=== PATIENT | female | born 1995 | race Caucasian/White ===

== ENCOUNTER → 2017-03-14 | Outpatient (CLI) | payer OTHER ==
[~2017-03-14] MED LIST: ABL10 PO; CIPR-255 PO; HYDR-5688 PO; MULT-506 PO; OXCA300T PO; SULF800T23 PO; TRAZ50TA35 PO
[2017-03-14 17:05] LABS: PREG INTERNAL NEGATIVE QC NEG CLEAR BACKGROUND; PREG INTERNAL POSITIVE QC POS CONTROL LINE
== END | disposition home or self-care (01) ==
LOC: C.LABBC 12:32
PROVIDERS: ATTEND Physician Assistant
DX: N91.2 Amenorrhea, unspecified (principal)

== ENCOUNTER → 2017-03-14 | Outpatient (CLI) | payer OTHER ==
[2017-03-17 09:25] LABS: CHLAMYDIA TRACH RNA*** NOT DETECTED (NOT DETECTED); GC (NEIS GONORRHOEAE)RNA** NOT DETECTED (NOT DETECTED)
== END | disposition home or self-care (01) ==
LOC: C.LABSPEC 16:00
PROVIDERS: ATTEND Physician Assistant
DX: Z01.419 Encounter for gynecological examination (general) (routine) without abnormal findings (principal)

== ENCOUNTER → 2017-03-14 | Outpatient (CLI) | payer OTHER | END | disposition home or self-care (01) | LOC: C.PAPS 16:29 | PROVIDERS: ATTEND Physician Assistant | DX: Z12.4 Encounter for screening for malignant neoplasm of cervix (principal) ==

== ENCOUNTER 2017-04-03 19:17 | Emergency (ER) | payer OTHER ==
[~2017-04-03] VITALS: Ht 165.1 cm; Wt 69.9 kg
[~2017-04-03 19:17] MED LIST changes: -ABL10 PO; -CIPR-255 PO; -HYDR-5688 PO; -SULF800T23 PO; -TRAZ50TA35 PO
[2017-04-03 19:22] VITALS: TEMP 36.9; Ht 165.1 cm; Wt 69.9 kg
[2017-04-03] MEDS ORDERED: SODIUM CHLORIDE 0.9% 1000ML 1,000 ML IV STA (19:41)
[2017-04-03] MEDS ORDERED: HYDROmorphone INJ 1 MG/ML SYR IV STA (19:49)
[2017-04-03] MEDS ORDERED: KETOROLAC TROMETHAMINE 30 MG/ML VIAL IV STA (19:49)
[2017-04-03] MEDS ORDERED: METOCLOPRAMIDE HCL INJ 5 MG/ML 2 ML VIAL IV STA (19:49)
[2017-04-03] MEDS ORDERED: TRAZ50TA35 PO (19:53)
[2017-04-03] MEDS ORDERED: ABL10 PO (19:53)
[2017-04-03] MEDS ORDERED: OPTIRAY 320 IV PRN (20:15)
[2017-04-03 20:21] LABS: ISTAT CREATININE 0.8 mg/dl (0.6-1.3); ISTAT HEMOGLOBIN 14.3 g/dl (12.0-16.0); ISTAT IONIZED CALCIUM 1.15 mmol/l (1.12-1.32)
[2017-04-03 20:23] LABS: URINE APPEARANCE CLOUDY (CLEAR); URINE BILIRUBIN NEG (NEG); URINE COLOR YELLOW; URINE EPITHELIAL CELL AUTO >30 /lpf (0-5); URINE NITRITE NEG (NEG); URINE SPECIFIC GRAVITY 1.024 (1.000-1.030); UROBILINOGEN NEG (NEG)
[2017-04-03 20:24] LABS: MANUAL MICROSCOPIC REQUIRED? NO; REVIEW REQ? YES
[2017-04-03 20:29] LABS: BASO % 0.2 %; BASO ABS # 0.02 K/uL (0-0.2); COMPLETE YES; EOS % 2.1 %; HEMATOCRIT 40.9 % (37-47); IG% 0.2 %; LYMPH % 30.4 %; MEAN CORPUSCULAR HEMOGLOBIN 30.5 pg (25-34); MEAN CORPUSCULAR HGB CONC 32.8 g/dl (32-36); MONO % 10.7 %; NEUT % 56.4 %; PLATELET COUNT 336 K/uL (130-400)
--- NOTE | 2017-04-03 20:50 | EMERGENCY ROOM VISIT NOTE ---
History Report prepared by Adam: Jennyfer Ortiz Under the Supervision of: Dr. Judson Olmedo M.D. First contact with patient: 19:36 Chief Complaint: ABDOMINAL PAIN Stated Complaint: PAIN IN RT UPPER SIDE, FEVER History of Present Illness The patient is a 22 year old female who presents to the Emergency Room with complaints of right upper quadrant abdominal pain starting 3 days ago. She reports pain radiation to the back. She describes it as a sharp pain. She took Ibuprofen without relief. She has nausea with eating. She had a fever last night. She denies vomiting, or any other complaints. She denies any chance of . Her last normal menstrual period ended 3 days ago. She denies any history of cholecystectomy. Source of History: patient Onset: 3 days ago Position: abdomen (RUQ) Quality: sharp Modifying Factors (Relieving): ibuprofen (without relief) Associated Symptoms: + fevers, + nausea, No vomiting Review of Systems See HPI for pertinent positives & negatives. A total of 10 systems reviewed and were otherwise negative. Past Medical & Surgical Medical Problems: (1) Abdominal pain, acute (2) Acute bronchitis (3) Acute bronchitis (4) adhd (5) Altered mental state (6) Altered mental state (7) Asthma (8) Benign hypertension (9) Bipolar disorder (10) Confusion (11) Contusion of finger (12) Contusion of knee, left (13) Contusion of knee, left (14) Cough (15) Dental caries (16) Dental infection (17) Gastroenteritis (18) Headache (19) Headache (20) Hip pain, right (21) history of concussion 2 years ago (22) Lower abdominal pain of unknown etiology (23) Migraine (24) Ovarian cyst (25) Ovarian cyst (26) Pelvic pain (27) Severe headache (28) Sinusitis (29) Sinusitis (30) stomach poblems (31) Tendonitis of foot (32) Tooth pain with chewing (33) Urinary tract infection (34) UTI (urinary tract infection) (35) UTI (urinary tract infection) (36) Vaginal bleeding (37) Viral syndrome (38) Vomiting Surgical Problems: (1) Appendectomy (2) pin in hip Family History Cancer Diabetes mellitus FH: heart disease FHx: cancer Gallbladder disease Heart disease Hypertension Seizures Social History Smoking Status: Current Every Day Smoker Alcohol Use: none Drug Use: none Marital Status: single Housing Status: lives with family Occupation Status: student Current/Historical Medications Scheduled Aripiprazole (Abilify), 10 MG PO DAILY Ciprofloxacin Hcl (Cipro), 1 TAB PO BID Multivitamin (Multivitamin), 1 TAB PO DAILY Trazodone Hcl (Trazodone), 50 MG PO HS Scheduled PRN Hydrocodone/Acetaminophen 5MG/325MG (Mosby 5MG/325MG), 2 TABLETS PO Q6 PRN for Pain Allergies Coded Allergies: Sulfamethoxazole w/Trimethoprim (Verified Allergy, Intermediate, Generalized Rash, 04/03/17) Itchy, Painful Lamotrigine (Verified Allergy, Unknown, Rash and peeling skin., 04/03/17) Reported by PT. Sulfa Antibiotics (Unverified Allergy, Unknown, MINI STROKE, SEIZURE, 04/03) Quetiapine (Unverified Adverse Reaction, Mild, 0, 04/03/17) movement dso Physical Exam Vital Signs Date Time Temp Pulse Resp B/P (MAP) Pulse Ox O2 Delivery O2 Flow Rate FiO2 04/03/17 22:05 80 18 127/79 99 04/03/17 21:34 87 04/03/17 21:16 71 18 122/85 100 Room Air 04/03/17 20:12 93 18 121/76 98 Room Air 04/03/17 19:22 36.9 97 18 120/80 100 Room Air Physical Exam GENERAL: Patient is a healthy-appearing well-nourished HEAD: Normocephalic atraumatic EYES: Ocular movements intact pupils equal and react to light OROPHARYNX mucous membranes are moist no exudates present no erythema or edema present NECK: Supple no nuchal rigidity CHEST: Good equal expansion LUNGS: Clear and equal to auscultation CARDIAC: Normal S1 and S2 ABDOMEN: Soft, tenderness in right upper quadrant, no guarding BACK: No CVA tenderness EXTREMITIES: No pain upon palpation normal muscle strength in all groups no clubbing cyanosis or edema NEURO: Patient is following commands and answering questions appropriately. Alert and oriented x3 Cranial Nerves 2-12 grossly intact Medical Decision & Procedures ER Provider Diagnostic Interpretation: US and CT results as stated below per my review and radiologist interpretation: ABDOMEN LIMITED (US) HISTORY: 22 years-old Female Pt c/o RUQ abd pain COMPARISON: 07/06/2013 TECHNIQUE: Multiple real-time sonographic images of the abdominal right upper quadrant were obtained assessing grayscale appearance and color flow FINDINGS: Image pancreas is unremarkable. No pancreatic ductal dilation. The hepatic parenchyma is somewhat heterogenous, nonspecific without focal mass identified. Liver measures up to 17.7 cm. Gallbladder appears normal without cholelithiasis or sonographic evidence of acute cholecystitis. There is no biliary ductal dilatation. Common bile duct measures 0.3 cm. The right kidney appears normal without hydronephrosis. IMPRESSION: 1. No cholelithiasis or sonographic evidence of acute cholecystitis. 2. Nonspecific mildly heterogeneous appearance of the liver. 3. No biliary ductal dilatation. The above report was generated using voice recognition software. It may contain grammatical, syntax or spelling errors. Electronically signed by: Dylan Ling M.D. 04/03/2017 9:39 PM Dictated Date/Time: 04/03/2017 9:37 PM ABD/PELVIS IV CONTRAST ONLY HISTORY: 22 years-old Female Pt c/o RUQ abd pain COMPARISON: CT 04/26/2010 TECHNIQUE: Multiple axial CT images of the abdomen and pelvis were obtained following the intravenous administration of 115 mL Optiray 320. A dose lowering technique was used consistent with the principals of DANDRE. FINDINGS: There is mild subsegmental bibasilar atelectasis. No pneumoperitoneum. Inferior cardiac chambers are unremarkable. Liver, gallbladder, spleen, pancreas and adrenal glands appear normal. Bilateral kidneys are within normal limits. Ureters and urinary bladder are unremarkable. Mild amount of fluid is seen within the endometrial canal. Follicles are seen within the region of the bilateral ovaries. Abdominal aorta is normal in course and caliber. There is no bulky retroperitoneal adenopathy identified. There is mild dilation of the second portion duodenum with acute angulation of the superior mesenteric artery seen on the sagittal images. Air-fluid level noted within the stomach. Duodenum measures up to 2.6 cm transversely with abrupt narrowing at the third portion the duodenum or the SMA crosses. The remainder of the small bowel appears normal. There is collapse of the sigmoid colon. Prior appendectomy. Soft tissues are within normal limits. Cannulated screw involves the right femoral head and neck. There are associated moderate degenerative changes of the right femoral acetabular joint with evidence of AVN and partial femoral head collapse involving less than 50% surface area. There are remote bilateral pars defects at L5. IMPRESSION: 1. Mild dilation of the proximal duodenum with abrupt narrowing of the third portion duodenum is noted in conjunction with acute angulation of the SMA origin. These findings may reflect underlying SMA syndrome within the appropriate clinical setting. 2. No bowel obstruction. 3. Prior appendectomy. 4. 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 The above report was generated using voice recognition software. It may contain grammatical, syntax or spelling errors. Electronically signed by: Dylan Ling M.D. 04/03/2017 9:30 PM Dictated Date/Time: 04/03/2017 9:23 PM Laboratory Results 04/03/17 20:00 Red Blood Count 4.40, Mean Corpuscular Volume 93.0, Mean Corpuscular Hemoglobin 30.5, Mean Corpuscular Hemoglobin Concent 32.8, Mean Platelet Volume 11.0, Neutrophils (%) (Auto) 56.4, Lymphocytes (%) (Auto) 30.4, Monocytes (%) (Auto) 10.7, Eosinophils (%) (Auto) 2.1, Basophils (%) (Auto) 0.2, Neutrophils # (Auto ) 5.19, Lymphocytes # (Auto) 2.80, Monocytes # (Auto) 0.98, Eosinophils # (Auto ) 0.19, Basophils # (Auto) 0.02 04/03/17 20:00 Test 04/03/17 20:00 04/03/17 20:08 White Blood Count 9.20 K/uL (4.8-10.8) Red Blood Count 4.40 M/uL (4.2-5.4) Hemoglobin 13.4 g/dL (12.0-16.0) Hematocrit 40.9 % (37-47) Mean Corpuscular Volume 93.0 fL (80-100) Mean Corpuscular Hemoglobin 30.5 pg (25-34) Mean Corpuscular Hemoglobin Concent 32.8 g/dl (32-36) Platelet Count 336 K/uL (130-400) Mean Platelet Volume 11.0 fL (7.4-10.4) Neutrophils (%) (Auto) 56.4 % Lymphocytes (%) (Auto) 30.4 % Monocytes (%) (Auto) 10.7 % Eosinophils (%) (Auto) 2.1 % Basophils (%) (Auto) 0.2 % Neutrophils # (Auto) 5.19 K/uL (1.4-6.5) Lymphocytes # (Auto) 2.80 K/uL (1.2-3.4) Monocytes # (Auto) 0.98 K/uL (0.11-0.59) Eosinophils # (Auto) 0.19 K/uL (0-0.5) Basophils # (Auto) 0.02 K/uL (0-0.2) RDW Standard Deviation 45.5 fL (36.4-46.3) RDW Coefficient of Variation 13.3 % (11.5-14.5) Immature Granulocyte % (Auto) 0.2 % Immature Granulocyte # (Auto) 0.02 K/uL (0.00-0.02) Red Blood Cell Morphology Unremarkable Urine Color YELLOW Urine Appearance CLOUDY (CLEAR) Urine pH 5.0 (4.5-7.5) Urine Specific [place] 1.024 (1.000-1.030) Urine Protein NEG (NEG) Urine Glucose (UA) NEG (NEG) Urine Ketones TRACE (NEG) Urine Occult Blood NEG (NEG) Urine Nitrite NEG (NEG) Urine Bilirubin NEG (NEG) Urine Urobilinogen NEG (NEG) Urine Leukocyte Esterase LARGE (NEG) Urine WBC (Auto) >30 /hpf (0-5) Urine RBC (Auto) 0-4 /hpf (0-4) Urine Hyaline Casts (Auto) /lpf (0-5) Urine Epithelial Cells (Auto) >30 /lpf (0-5) Urine Bacteria (Auto) 1+ (NEG) Urine Test NEG (NEG) Est Creatinine Clear Calc Drug Dose 114.5 ml/min Estimated GFR () 130.2 Estimated GFR (Non- 112.4 BUN/Creatinine Ratio 18.4 (10-20) Calcium Level 9.6 mg/dl (8.5-10.1) Total Bilirubin 0.3 mg/dl (0.2-1) Direct Bilirubin mg/dl (0-0.2) Aspartate Amino Transf (AST/SGOT) U/L (15-37) Alanine Aminotransferase (ALT/SGPT) 20 U/L (12-78) Alkaline Phosphatase 74 U/L (45-117) Total Protein 7.0 gm/dl (6.4-8.2) Albumin 3.9 gm/dl (3.4-5.0) Lipase 201 U/L (73-393) Bedside Hemoglobin 14.3 g/dl (12.0-16.0) Bedside Hematocrit 42 % (37-47) Bedside Sodium 140 mEq/L (135-144) Bedside Potassium 4.1 mEq/L (3.3-5.0) Bedside Chloride 106 mEq/L (101-112) Bedside Total CO2 25 mEq/l (24-31) Anion Gap 14.0 mmol/L (16-25) Bedside Blood Urea Nitrogen 17 mg/dl (7-18) Bedside Creatinine 0.8 mg/dl (0.6-1.3) Bedside Glucose (other) 100 mg/dl (70-99) Bedside Ionized Calcium (Sujata) 1.15 mmol/l (1.12-1.32) Labs reviewed by ED physician. Medications Administered Medications (Trade) Dose Ordered Sig/Alee Route Start Time Stop Time Status Last Admin Dose Admin Sodium Chloride 1,000 ml @ 999 mls/hr Q1H1M STAT IV 04/03/17 19:41 04/03/17 20:41 DC 04/03/17 20:06 999 MLS/HR Ketorolac Tromethamine (Toradol Inj) 30 mg NOW STAT IV 04/03/17 19:49 04/03/17 19:51 DC 04/03/17 20:07 30 MG Hydromorphone HCl (Dilaudid Inj) 1 mg NOW STAT IV 04/03/17 19:49 04/03/17 19:51 DC 04/03/17 20:10 1 MG Metoclopramide HCl (Reglan Inj) 10 mg NOW STAT IV 04/03/17 19:49 04/03/17 19:51 DC 04/03/17 20:08 10 MG Ceftriaxone Sodium (Rocephin Inj) 1 gm NOW STAT IV 04/03/17 21:33 04/03/17 21:34 DC 04/03/17 21:43 1 GM ED Course 1935: Past medical records reviewed. The patient was evaluated in room C02B. A complete history and physical examination was performed. 1940: Sodium Chloride 1000 ml @ 999 mls/hr IV 1948: Reglan Inj 10 mg IV, Dilaudid Inj 1 mg IV, Toradol Inj 30 mg IV 2132: Rocephin Inj 1 gm IV 2149: Upon reexamination the patient is feeling better. I discussed results and treatment plan with the patient. She verbalizes agreement and understanding. The patient is ready for discharge. Medical Decision Differential diagnosis: Etiologies such as diverticulitis, PUD, biliary pathology, UTI, pancreatitis, obstruction, mesenteric ischemia, aortic pathology, infections, inflammatory bowel disease, renal colic, as well as others were entertained. This is a 22-year-old female who presents emergency department complaining right upper quadrant abdominal pain. The patient reports the pain is been ongoing for the past 3 days. Serial abdominal examinations were performed on the patient in the emergency department and no tended patient exhibit abdominal tenderness or even a surgical abdomen. The patient's CAT scan is concerning for SMA syndrome however I do not feel that this is a diagnosis as the patient is pain-free and does not have an elevation in her white blood count cell count. I have the patient does appear to have large in amount of white blood cells in her urine and therefore I will place patient on Rocephin along with Cipro. I did stressed the need for follow-up with gastroenterology. Patient was in agreement with the treatment plan. Medication Reconcilliation Current Medication List: was personally reviewed by me Blood Pressure Screening Patient's blood pressure: Normal blood pressure Impression Primary Impression: Right upper quadrant abdominal pain Scribe Attestation The scribe's documentation has been prepared under my direction and personally reviewed by me in its entirety. I confirm that the note above accurately reflects all work, treatment, procedures, and medical decision making performed by me. Departure Information Dispostion Home / Self-Care Prescriptions Ciprofloxacin Hcl (CIPRO) 500 Mg Tab 1 TAB PO BID for 10 Days, #20 TAB Prov: Judson Olmedo MD 04/03/17 Hydrocodone/Acetaminophen 5MG/325MG (Mosby 5MG/325MG) Tab 2 TABLETS PO Q6 Y for Pain, #14 TAB Prov: Judson Olmedo MD 04/03/17 Referrals No Doctor, Assigned (PCP) Forms HOME CARE DOCUMENTATION FORM, IMPORTANT VISIT INFORMATION, School Instructions, Work Instructions Patient Instructions Abdominal Pain - [facility], ED UTI Cystitis Female, My [facility] Additional Instructions Need follow up with DR De Leon's office Clear liquid diet next 48 hours You received narcotic or benzodiazepene medication while in the emergency room today. Do not drive, operate heavy machinery, or drink alcohol under the influence of this medication. Take 600 mg Ibuprofen every 6 hours Take Percocet for breakthrough pain Radiographs and CTs will be reread by a radiologist in the morning. Culture results are usually available in approx 48 hours You have been examined and treated today on an emergency basis only. This is not a substitute for, or an effort to provide, complete comprehensive medical care. It is impossible to recognize and treat all injuries or illnesses in a single emergency department visit. It is therefore important that you follow up closely with [facility]. Call as soon as possible for an appointment. Thank you for your time and consideration. I look forward to speaking with you again soon. Please don't hesitate to call us if you have any questions.
[2017-04-03 21:05] LABS: ALKALINE PHOSPHATASE 74 U/L (45-117); ALT/SGPT 20 U/L (12-78); BLOOD UREA NITROGEN 14 mg/dl (7-18); BUN/CREATININE RATIO 18.4 (10-20); CALCIUM 9.6 mg/dl (8.5-10.1); CARBON DIOXIDE 24 mmol/L (21-32); CHLORIDE 111 mmol/L (98-107); CREATININE 0.75 mg/dl (0.60-1.20); GLUCOSE 95 mg/dl (70-99); SODIUM 140 mmol/L (136-145)
--- NOTE | 2017-04-03 21:31 | DIAGNOSTIC IMAGING REPORT ---
ABD/PELVIS IV CONTRAST ONLY HISTORY: 22 years-old Female Pt c/o RUQ abd pain COMPARISON: CT 04/26/2010 TECHNIQUE: Multiple axial CT images of the abdomen and pelvis were obtained following the intravenous administration of 115 mL Optiray 320. A dose lowering technique was used consistent with the principals of DANDRE. FINDINGS: There is mild subsegmental bibasilar atelectasis. No pneumoperitoneum. Inferior cardiac chambers are unremarkable. Liver, gallbladder, spleen, pancreas and adrenal glands appear normal. Bilateral kidneys are within normal limits. Ureters and urinary bladder are unremarkable. Mild amount of fluid is seen within the endometrial canal. Follicles are seen within the region of the bilateral ovaries. Abdominal aorta is normal in course and caliber. There is no bulky retroperitoneal adenopathy identified. There is mild dilation of the second portion duodenum with acute angulation of the superior mesenteric artery seen on the sagittal images. Air-fluid level noted within the stomach. Duodenum measures up to 2.6 cm transversely with abrupt narrowing at the third portion the duodenum or the SMA crosses. The remainder of the small bowel appears normal. There is collapse of the sigmoid colon. Prior appendectomy. Soft tissues are within normal limits. Cannulated screw involves the right femoral head and neck. There are associated moderate degenerative changes of the right femoral acetabular joint with evidence of AVN and partial femoral head collapse involving less than 50% surface area. There are remote bilateral pars defects at L5. IMPRESSION: 1. Mild dilation of the proximal duodenum with abrupt narrowing of the third portion duodenum is noted in conjunction with acute angulation of the SMA origin. These findings may reflect underlying SMA syndrome within the appropriate clinical setting. 2. No bowel obstruction. 3. Prior appendectomy. 4. 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 The above report was generated using voice recognition software. It may contain grammatical, syntax or spelling errors. Electronically signed by: Dylan Ling M.D. 04/03/2017 9:30 PM Dictated Date/Time: 04/03/2017 9:23 PM
[2017-04-03] MEDS ORDERED: CEFTRIAXONE SOD INJ 1 GM ADDVIAL IV STA (21:33)
--- NOTE | 2017-04-03 21:40 | DIAGNOSTIC IMAGING REPORT ---
ABDOMEN LIMITED (US) HISTORY: 22 years-old Female Pt c/o RUQ abd pain COMPARISON: 07/06/2013 TECHNIQUE: Multiple real-time sonographic images of the abdominal right upper quadrant were obtained assessing grayscale appearance and color flow FINDINGS: Image pancreas is unremarkable. No pancreatic ductal dilation. The hepatic parenchyma is somewhat heterogenous, nonspecific without focal mass identified. Liver measures up to 17.7 cm. Gallbladder appears normal without cholelithiasis or sonographic evidence of acute cholecystitis. There is no biliary ductal dilatation. Common bile duct measures 0.3 cm. The right kidney appears normal without hydronephrosis. IMPRESSION: 1. No cholelithiasis or sonographic evidence of acute cholecystitis. 2. Nonspecific mildly heterogeneous appearance of the liver. 3. No biliary ductal dilatation. The above report was generated using voice recognition software. It may contain grammatical, syntax or spelling errors. Electronically signed by: Dylan Ling M.D. 04/03/2017 9:39 PM Dictated Date/Time: 04/03/2017 9:37 PM
[2017-04-03] MEDS ORDERED: HYDR-5688 PO (21:48)
[2017-04-03] MEDS ORDERED: SULF800T23 PO (21:48)
[2017-04-03] MEDS ORDERED: CIPR-255 PO (21:52)
[2017-04-03 22:05] VITALS: BP 127/79; PULSE 80; O2SAT 99
== END 2017-04-03 22:05 | disposition home or self-care (01) ==
LOC: C.EDB 19:18 → C.EDC 22:05
DX: R10.11 Right upper quadrant pain (principal); I10 Essential (primary) hypertension; F31.9 Bipolar disorder, unspecified; N83.209 Unspecified ovarian cyst, unspecified side; J45.909 Unspecified asthma, uncomplicated; F90.9 Attention-deficit hyperactivity disorder, unspecified type; F17.200 Nicotine dependence, unspecified, uncomplicated; Z87.820 Personal history of traumatic brain injury; Z87.828 Personal history of other (healed) physical injury and trauma; Z87.19 Personal history of other diseases of the digestive system; Z87.440 Personal history of urinary (tract) infections; Z98.890 Other specified postprocedural states; Z88.2 Allergy status to sulfonamides; Z88.8 Allergy status to other drugs, medicaments and biological substances; Z80.9 Family history of malignant neoplasm, unspecified; Z83.3 Family history of diabetes mellitus; Z82.49 Family history of ischemic heart disease and other diseases of the circulatory system; Z83.79 Family history of other diseases of the digestive system; Z82.0 Family history of epilepsy and other diseases of the nervous system

== ENCOUNTER 2017-07-20 23:08 | Emergency (ER) | payer OTHER ==
[~2017-07-20] VITALS: Ht 165.1 cm; Wt 68.9 kg
[~2017-07-20 23:08] MED LIST changes: +ABL10 PO; +CIPR-255 PO; +HYDR-5688 PO; -OXCA300T PO; +TRAZ50TA35 PO
[2017-07-20 23:15] VITALS: TEMP 37; Ht 165.1 cm; Wt 68.9 kg
[2017-07-20] MEDS ORDERED: KETOROLAC TROMETHAMINE 30 MG/ML VIAL IV STA (23:28)
[2017-07-20] MEDS ORDERED: ONDANSETRON INJ 2 MG/ML 2 ML VIAL IV STA (23:28)
[2017-07-20] MEDS ORDERED: SODIUM CHLORIDE 0.9% 1000ML 1,000 ML IV ONE (23:30)
[2017-07-20 23:52] LABS: URINE APPEARANCE CLEAR (CLEAR); URINE BILIRUBIN NEG (NEG); URINE COLOR YELLOW; URINE EPITHELIAL CELL AUTO 20-30 /lpf (0-5); URINE NITRITE NEG (NEG); URINE SPECIFIC GRAVITY 1.018 (1.000-1.030); UROBILINOGEN NEG (NEG); ZZUR CULT IF INDIC CLEAN CATCH NO
[2017-07-20 23:58] LABS: BASO % 0.3 %; BASO ABS # 0.03 K/uL (0-0.2); COMPLETE YES; EOS % 1.1 %; HEMATOCRIT 39.9 % (37-47); IG% 0.3 %; LYMPH ABS # 2.93 K/uL (1.2-3.4); MEAN CELL VOLUME 92.1 fL (80-100); MEAN CORPUSCULAR HEMOGLOBIN 30.7 pg (25-34); MEAN CORPUSCULAR HGB CONC 33.3 g/dl (32-36); MEAN PLATELET VOLUME 9.5 fL (7.4-10.4); MONO % 7.4 %; NEUT % 62.9 %; PLATELET COUNT 362 K/uL (130-400); RED BLOOD COUNT 4.33 M/uL (4.2-5.4); WHITE BLOOD COUNT 10.45 K/uL (4.8-10.8)
[2017-07-21 00:02] LABS: MANUAL MICROSCOPIC REQUIRED? NO; REVIEW REQ? NO
[2017-07-21 00:11] LABS: BUN/CREATININE RATIO 17.2 (10-20); CALCIUM 9.4 mg/dl (8.5-10.1); CREATININE 0.85 mg/dl (0.60-1.20); POTASSIUM 3.6 mmol/L (3.5-5.1)
[2017-07-21 00:14] LABS: ALB/GLOB RATIO 1.2 (0.9-2)
[2017-07-21 01:58] VITALS: PULSE 75; O2SAT 100
[2017-07-21 02:01] VITALS: BP 141/102
--- NOTE | 2017-07-21 04:13 | EMERGENCY ROOM VISIT NOTE ---
History First contact with patient: 23:17 Chief Complaint: ABDOMINAL PAIN Stated Complaint: PAIN ON RIGHT SIDE GOES TO BACK Nursing Triage Summary: Progressive right upper quadrant pain, onset 3 weeks ago. Associated nausea without emesis. Does have diarrhea. History of Present Illness The patient is a 22 year old female who presents to the Emergency Room with complaints of right upper quadrant abdominal pain for at least the past 3 weeks. The patient states that her pain seems to worsen when eating. She will have nausea without emesis. She also reports having intermittent diarrhea. She has not had fever, chills, chest pain, chest tightness, shortness of breath , or lower abdominal discomfort. She denies chance of . She rates her current discomfort a 5/10. Review of Systems More than 10 systems were reviewed and otherwise negative with the exception of history of present illness. Past Medical/Surgical History Medical Problems: (1) Abdominal pain, acute (2) Acute bronchitis (3) Acute bronchitis (4) adhd (5) Altered mental state (6) Altered mental state (7) Asthma (8) Benign hypertension (9) Bipolar disorder (10) Confusion (11) Contusion of finger (12) Contusion of knee, left (13) Contusion of knee, left (14) Cough (15) Dental caries (16) Dental infection (17) Gastroenteritis (18) Headache (19) Headache (20) Hip pain, right (21) history of concussion 2 years ago (22) Lower abdominal pain of unknown etiology (23) Migraine (24) Ovarian cyst (25) Ovarian cyst (26) Pelvic pain (27) Severe headache (28) Sinusitis (29) Sinusitis (30) stomach poblems (31) Tendonitis of foot (32) Tooth pain with chewing (33) Urinary tract infection (34) UTI (urinary tract infection) (35) UTI (urinary tract infection) (36) Vaginal bleeding (37) Viral syndrome (38) Vomiting Surgical Problems: (1) Appendectomy (2) pin in hip Family History Cancer Diabetes mellitus FH: heart disease FHx: cancer Gallbladder disease Heart disease Hypertension Seizures Social History Smoking Status: Current Every Day Smoker Alcohol Use: none Drug Use: none Marital Status: single Housing Status: lives with family Occupation Status: student Current/Historical Medications Scheduled Aripiprazole (Abilify), 10 MG PO DAILY Multivitamin (Multivitamin), 1 TAB PO DAILY Trazodone Hcl (Trazodone), 50 MG PO HS Physical Exam Vital Signs Date Time Temp Pulse Resp B/P (MAP) Pulse Ox O2 Delivery O2 Flow Rate FiO2 07/21/17 02:01 141/102 07/21/17 01:58 75 16 100 07/21/17 01:53 83 24 100 07/21/17 01:38 78 23 100 07/21/17 01:31 142/100 07/21/17 01:24 143/103 07/21/17 01:23 80 21 100 07/21/17 00:31 138/104 07/21/17 00:23 86 16 100 07/21/17 00:08 76 24 100 07/21/17 00:01 150/100 07/20/17 23:53 92 21 100 07/20/17 23:52 90 07/20/17 23:49 130/92 07/20/17 23:48 87 20 130/92 100 Room Air 07/20/17 23:15 37.0 103 18 128/82 100 Room Air Physical Exam VITALS: Vitals are noted on the nurse's note and reviewed by myself. Vital signs stable. GENERAL: Well-developed, well-nourished, white female, who is in no acute distress and resting comfortably. Patient is cooperative with the examination. HEART: Regular rate and rhythm without murmurs gallops or rubs. LUNGS: Clear to auscultation bilaterally without wheezes, rales or rhonchi. No retractions or accessory muscle use. ABDOMEN: Positive normal bowel sounds x 4. Soft with mild right upper quadrant tenderness on palpation. No rebound or guarding. No CVA tenderness. Medical Decision & Procedures ER Provider Diagnostic Interpretation: Preliminary Findings Only See Final Report For Complete Findings US RUQ: Gallbladder is unremarkable. Common bile duct is within normal limits. Probable mild hepatic steatosis. Right kidney is unremarkable. No hydronephrosis. Laboratory Results 07/20/17 23:43 Red Blood Count 4.33, Mean Corpuscular Volume 92.1, Mean Corpuscular Hemoglobin 30.7, Mean Corpuscular Hemoglobin Concent 33.3, Mean Platelet Volume 9.5, Neutrophils (%) (Auto) 62.9, Lymphocytes (%) (Auto) 28.0, Monocytes (%) (Auto) 7.4, Eosinophils (%) (Auto) 1.1, Basophils (%) (Auto) 0.3, Neutrophils # (Auto) 6.57, Lymphocytes # (Auto) 2.93, Monocytes # (Auto) 0.77, Eosinophils # (Auto) 0.12, Basophils # (Auto) 0.03 07/20/17 23:43 Test 07/20/17 23:30 07/20/17 23:43 Urine Color YELLOW Urine Appearance CLEAR (CLEAR) Urine pH 5.0 (4.5-7.5) Urine Specific [place] 1.018 (1.000-1.030) Urine Protein NEG (NEG) Urine Glucose (UA) NEG (NEG) Urine Ketones NEG (NEG) Urine Occult Blood 3+ (NEG) Urine Nitrite NEG (NEG) Urine Bilirubin NEG (NEG) Urine Urobilinogen NEG (NEG) Urine Leukocyte Esterase TRACE (NEG) Urine WBC (Auto) 1-5 /hpf (0-5) Urine RBC (Auto) 0-4 /hpf (0-4) Urine Hyaline Casts (Auto) 0 /lpf (0-5) Urine Epithelial Cells (Auto) 20-30 /lpf (0-5) Urine Bacteria (Auto) NEG (NEG) Urine Test NEG (NEG) White Blood Count 10.45 K/uL (4.8-10.8) Red Blood Count 4.33 M/uL (4.2-5.4) Hemoglobin 13.3 g/dL (12.0-16.0) Hematocrit 39.9 % (37-47) Mean Corpuscular Volume 92.1 fL (80-100) Mean Corpuscular Hemoglobin 30.7 pg (25-34) Mean Corpuscular Hemoglobin Concent 33.3 g/dl (32-36) Platelet Count 362 K/uL (130-400) Mean Platelet Volume 9.5 fL (7.4-10.4) Neutrophils (%) (Auto) 62.9 % Lymphocytes (%) (Auto) 28.0 % Monocytes (%) (Auto) 7.4 % Eosinophils (%) (Auto) 1.1 % Basophils (%) (Auto) 0.3 % Neutrophils # (Auto) 6.57 K/uL (1.4-6.5) Lymphocytes # (Auto) 2.93 K/uL (1.2-3.4) Monocytes # (Auto) 0.77 K/uL (0.11-0.59) Eosinophils # (Auto) 0.12 K/uL (0-0.5) Basophils # (Auto) 0.03 K/uL (0-0.2) RDW Standard Deviation 43.6 fL (36.4-46.3) RDW Coefficient of Variation 12.9 % (11.5-14.5) Immature Granulocyte % (Auto) 0.3 % Immature Granulocyte # (Auto) 0.03 K/uL (0.00-0.02) Anion Gap 12.0 mmol/L (3-11) Est Creatinine Clear Calc Drug Dose 100.4 ml/min Estimated GFR () 111.9 Estimated GFR (Non- 96.6 BUN/Creatinine Ratio 17.2 (10-20) Calcium Level 9.4 mg/dl (8.5-10.1) Total Bilirubin 0.2 mg/dl (0.2-1) Aspartate Amino Transf (AST/SGOT) 15 U/L (15-37) Alanine Aminotransferase (ALT/SGPT) 22 U/L (12-78) Alkaline Phosphatase 89 U/L (45-117) Total Protein 8.1 gm/dl (6.4-8.2) Albumin 4.4 gm/dl (3.4-5.0) Globulin 3.7 gm/dl (2.5-4.0) Albumin/Globulin Ratio 1.2 (0.9-2) Lipase 277 U/L (73-393) Medications Administered Medications (Trade) Dose Ordered Sig/Alee Route Start Time Stop Time Status Last Admin Dose Admin Ketorolac Tromethamine (Toradol Inj) 30 mg NOW STAT IV 07/20/17 23:28 07/20/17 23:30 DC 07/20/17 23:56 30 MG Ondansetron HCl (Zofran Inj) 4 mg NOW STAT IV 07/20/17 23:28 07/20/17 23:30 DC 07/20/17 23:54 4 MG Sodium Chloride 1,000 ml @ 999 mls/hr Q1H1M ONCE IV 07/20/17 23:30 07/21/17 00:30 DC 07/20/17 23:52 999 MLS/HR ED Course Physical exam and history were performed. Nursing notes, EMR, and Medication List were personally reviewed. Patient appears to have right upper quadrant abdominal pain for the past 3 weeks. She does have very mild tenderness on palpation without rebound or guarding in this area. IV access was established and labs were obtained. The patient was given IV Toradol here in the department and ultrasound was performed. The patient's blood work is as above and was reviewed. She does not have a significant elevated white blood cell count, anemia, bandemia, or significant electrolytic imbalance. Lipase and transaminases are nondiagnostic. Urine is without obvious signs of infection. Ultrasound did not show significant acute findings. Overall the patient appears well for discharge home. I suspect that her symptoms may be related to a gastritis or GERD, and had a lengthy discussion with patient and family about this. The patient may continue [id number] ibuprofen and Tylenol. She is to drink plenty of fluids. She will need to follow with her primary care physician in the next few days for recheck. She was otherwise invited back to the ER with any new, worsening, or concerning symptoms. The chart was completed utilizing [employer] Speech Voice Recognition Software. Grammatical errors, random word insertions, pronoun errors, and incomplete sentences are an occasional consequence of this system due to software limitations, ambient noise, and hardware issues. Any formal questions or concerns about the content, text, or information contained within the body of this dictation should be directly addressed to the provider for clarification. . Medical Decision Differential diagnosis: Etiologies such as appendicitis, diverticulitis, PUD, biliary pathology, UTI, pancreatitis, obstruction, mesenteric ischemia, aortic pathology, infections, inflammatory bowel disease, renal colic, as well as others were entertained. Impression Primary Impression: Abdominal pain Departure Information Dispostion Home / Self-Care Condition GOOD Forms HOME CARE DOCUMENTATION FORM, IMPORTANT VISIT INFORMATION Patient Instructions My [facility] Additional Instructions You were seen and evaluated today on an emergency basis only. This is not a substitute for, or an effort to provide, complete comprehensive medical care. It is not possible to recognize and treat all injuries or illnesses in a single emergency department visit. For this reason it is recommended that you followup with your primary care physician in the next 24-48 hours for recheck of your condition. Drink plenty of fluids and remain well hydrated. You may take Tylenol 1000 mg every 6 hours as needed for pain control. You are welcome to return to the emergency department anytime with new, worsening, or concerning symptoms. Problem Qualifiers Primary Impression: Abdominal pain Abdominal location: right upper quadrant Qualified Codes: R10.11 - Right upper quadrant pain
--- NOTE | 2017-07-21 07:17 | DIAGNOSTIC IMAGING REPORT ---
ABDOMINAL ULTRASOUND, RIGHT UPPER QUADRANT HISTORY: RUQ abd pain. COMPARISON: Abdominal ultrasound 04/03/2017. FINDINGS: Pancreas: The pancreas demonstrates a normal echotexture. Liver: Unremarkable. Gallbladder: No gallbladder wall thickening. No gallstones. The gallbladder appears contracted. CBD: 3 mm. Right kidney: No hydronephrosis. IMPRESSION: No significant abnormality identified within the right upper quadrant. Electronically signed by: Daryn Rome M.D. 07/21/2017 7:16 AM Dictated Date/Time: 07/21/2017 7:15 AM
--- NOTE | 2017-07-21 07:25 | DIAGNOSTIC IMAGING REPORT ---
ABDOMEN 2VIEW W/PA CHEST RTN CLINICAL HISTORY: RUQ abd pain COMPARISON STUDY: 05/09/2015 FINDINGS: The erect chest reveals no free intraperitoneal air. There is no lobar consolidation. Slight interstitial prominence may relate to technical factors. There are no abnormally dilated loops of large or small bowel. There are no transition zone to indicate bowel obstruction. There are no calcifications suspicious for renal calculi. There are postsurgical changes within the right hip. Surgical suture lines are visualized within the right lower quadrant. IMPRESSION: No evidence of bowel obstruction. No evidence of free air. Electronically signed by: David Buck M.D. 07/21/2017 7:23 AM Dictated Date/Time: 07/21/2017 7:22 AM
== END 2017-07-21 02:12 | disposition home or self-care (01) ==
LOC: C.EDB 23:08
DX: R10.11 Right upper quadrant pain (principal); R19.7 Diarrhea, unspecified; J45.909 Unspecified asthma, uncomplicated; I10 Essential (primary) hypertension; F17.200 Nicotine dependence, unspecified, uncomplicated; Z87.820 Personal history of traumatic brain injury; Z87.440 Personal history of urinary (tract) infections; Z90.89 Acquired absence of other organs; Z98.890 Other specified postprocedural states; Z83.3 Family history of diabetes mellitus; Z82.49 Family history of ischemic heart disease and other diseases of the circulatory system; Z82.0 Family history of epilepsy and other diseases of the nervous system

== ENCOUNTER → 2017-11-17 | Outpatient (CLI) | payer OTHER ==
[~2017-11-17] MED LIST changes: -CIPR-255 PO; -HYDR-5688 PO; +NCR2 MT; +OXCA300T2 PO
[2017-11-17 13:00] LABS: LUTEINIZING HORMONE 2.01 IU/L
[2017-11-17 13:01] LABS: FOLLICLE STIMULAT HORMONE 2.44 IU/L
== END | disposition home or self-care (01) ==
LOC: C.LAB1850 10:41
PROVIDERS: ATTEND Physician Assistant
DX: N92.6 Irregular menstruation, unspecified (principal)

== ENCOUNTER 2018-04-17 02:36 | Emergency (ER) | payer OTHER ==
[~2018-04-17] VITALS: Ht 165.1 cm; Wt 64.8 kg
[2018-04-17 02:41] VITALS: TEMP 36.6; Ht 165.1 cm; Wt 64.8 kg
[2018-04-17] MEDS ORDERED: KETOROLAC TROMETHAMINE 30 MG/ML VIAL IM STA (03:19)
[2018-04-17 04:49] VITALS: BP 122/70; PULSE 50; O2SAT 98
--- NOTE | 2018-04-17 04:51 | EMERGENCY ROOM VISIT NOTE ---
History First contact with patient: 02:47 Chief Complaint: HIP PAIN Stated Complaint: SEVERE RT LEG PAIN,HAD PIN PUT IN IT History of Present Illness The patient is a 23 year old female who presents to the Emergency Room with complaints of severe right hip pain for the past few days steadily getting worse. 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 She had surgery. Patient states she chronically has pain here but this is way worse than baseline. Patient denies new injury, chest pain , dyspnea, fevers, back pain, radiating pain, leg weakness, IV drug abuse, swelling to the region. She is able to ambulate. Review of Systems An 10 system review of systems was completed with positives and pertinent negatives listed in the HPI. Past Medical/Surgical History Medical Problems: (1) Abdominal pain, acute (2) Acute bronchitis (3) Acute bronchitis (4) adhd (5) Altered mental state (6) Altered mental state (7) Asthma (8) Benign hypertension (9) Bipolar disorder (10) Bipolar disorder, unspecified (11) Confusion (12) Contusion of finger (13) Contusion of knee, left (14) Contusion of knee, left (15) Cough (16) Dental caries (17) Dental infection (18) Gastroenteritis (19) Headache (20) Headache (21) Hip pain, right (22) history of concussion 2 years ago (23) Lower abdominal pain of unknown etiology (24) Migraine (25) Ovarian cyst (26) Ovarian cyst (27) Pelvic pain (28) Poor dentition (29) Schizoaffective disorder, bipolar type (30) Seizure disorder (31) Severe headache (32) Sinusitis (33) Sinusitis (34) stomach poblems (35) Tendonitis of foot (36) Tooth pain with chewing (37) Urinary tract infection (38) UTI (urinary tract infection) (39) UTI (urinary tract infection) (40) Vaginal bleeding (41) Viral syndrome (42) Vomiting Surgical Problems: (1) Appendectomy (2) pin in hip Family History Cancer Diabetes mellitus FH: heart disease FHx: cancer Gallbladder disease Heart disease Hypertension Seizures Social History Smoking Status: Current Every Day Smoker Alcohol Use: none Drug Use: none Marital Status: single Housing Status: lives with family Current/Historical Medications No Active Prescriptions or Reported Meds Physical Exam Vital Signs Date Time Temp Pulse Resp B/P (MAP) Pulse Ox O2 Delivery O2 Flow Rate FiO2 04/17/18 02:41 36.6 74 18 125/83 98 Room Air Physical Exam VITALS: Vitals are noted on the nurse's note and reviewed by myself. Vital signs stable. GENERAL: pleasant female, in no acute distress, nondiaphoretic, well-developed well-nourished. SKIN: Capillary reflex less than 2 seconds. HEENT: Normocephalic. PERRLA. EOMI. Nares patent. Mucous membranes moist. Neck is supple without nuchal rigidity. HEART: Regular rate and rhythm without murmurs gallops or rubs. LUNGS: Clear to auscultation bilaterally without wheezes, rales or rhonchi. No retractions or accessory muscle use. ABDOMEN: Positive bowel sounds x 4. Normal tympanic percussion. Soft, nontender, without masses or organomegaly. Gomez sign negative. No guarding or rebound tenderness. MUSCULOSKELETAL: No gross musculoskeletal defects. No pedal edema. No calf tenderness. No thoracic or lumbar tenderness on exam. Right hip tender to palpation with increased pain with range of motion. No femur knee pain. Pedal pulses +2 equal and present bilaterally. NEURO: Patient was alert and oriented to person place and time. Normal sensation to light and sharp touch. Deep tendon reflexes 2+ patella bilaterally. No focal neurological deficits. Medical Decision & Procedures Medications Administered Medications (Trade) Dose Ordered Sig/Alee Route Start Time Stop Time Status Last Admin Dose Admin Ketorolac Tromethamine (Toradol Inj) 30 mg NOW STAT IM 04/17/18 03:19 04/17/18 03:20 DC 04/17/18 03:27 30 MG ED Course Prior records/ancillary studies reviewed. Triage Nursing notes reviewed. Additional history obtained from family. The patient's history was concerning for right hip pain. Differential diagnosis: Etiologies such as musculoskeletal, disc herniation, fracture, renal colic, metastatic disease, cord compression, discitis, infection, acute exacerbation of chronic hip pain, sciatica, cauda equina, as well as others were entertained. Physical findings: As above. No focal neurologic findings noted. ER treatment provided: Toradol On reassessment the patient felt better. Diagnostics interpreted by me: Imaging studies: CT RIGHT HIP: No fracture or dislocation No evidence of pelvic hematoma Cannulated right femoral head screw again noted Subchondral cyst formation anterior lateral femoral head Small foci of air at the peripheral right gluteus muscle, clinically correlate coronal 41 and axial 6 Radiologist: Fabrice Kilgore M.D. Hip x-ray with no acute fracture or effusion per my interpretation This appears to be consistent with hip pain most likely from osteoarthritis. Patient was neurovascularly neurologically intact. She is well-appearing. She is advised to follow-up orthopedics in a few days here in the ER sooner for severe pain, numbness, tingling, worsening signs or symptoms or as needed. The patient's physical examination and detailed history did not reveal any red flags for hip pain such as those listed in the differential diagnosis. Therefore advanced diagnostics and consultations were felt to be unwarranted. By the evaluation outlined above emergent etiologies such as fracture, aortic disease, metastatic disease, infection, renal colic, gastrointestinal, cord compression, cauda equina, as well as others were deemed relatively unlikely. The pt informed about the findings as listed above. All questions were answered and pleased with the treatment. Return instructions were outlined and the patient was discharged in stable condition. Outpatient prescription management: Medrol Dosepak Referral: The patient was referred to orthopedics and/or primary care physician for follow -up in 2 to 3 days for a recheck of the current condition. The chart was completed utilizing [employer] Speech voice recognition software. Grammatical errors, random word insertions, pronoun errors, and incomplete sentences are an occassional consequence of this system due to software limitations, ambient noise, and hardware issues. Any formal questions or concerns about the content, text, or information contained within the body of this dictation should be directly addressed to the physician research assistant member for clarification. Medical Decision as above Medication Reconcilliation Current Medication List: was personally reviewed by me Blood Pressure Screening Patient's blood pressure: Normal blood pressure Impression Primary Impression: Hip pain, right Departure Information Dispostion Home / Self-Care Condition GOOD Prescriptions No Active Prescriptions or Reported Meds Referrals No Doctor, Assigned (PCP) Patient Instructions [facility] Additional Instructions Medrol Dosepak as directed. Recommend yoga and/or Pilates for back pain to help strengthen uo your core. Recommend physical therapy to help strengthen up your core. Recommend a healthy weight. Ibuprofen(Motrin, Advil) may be used for fever or pain. Use 600mg every six hours as needed. Take with food. Avoid using more than 2400mg in a 24 hour period. Do not use 2400mg per day for more than three consecutive days without physician direction. Prolonged inappropriate use can lead to stomach upset or ulcers. This medication can be taken if you need to drive, work, or perform activities which may be dangerous when taking narcotic pain medication. (AND/OR) Acetaminophen(Tylenol) may be used for fever or pain. Use 1000mg every six hours as needed. Avoid using more than 3000mg in a 24 hour period. This medication can be taken if you need to drive, work, or perform activities which may be dangerous when taking narcotic pain medication. Rest and avoid heavy lifting until your symptoms resolve and then gradually return to full activity. A good rule of thumb is if it hurts your hip to perform a certain activity, then it should be avoided until you are healthy again. A heating pad, warm compresses, or a hot shower may help with tight muscles and can be done several times a day as needed. Continue current medications. Return to the ER immediately for any numbness, tingling, severe pain, loss of control of your bowels or bladder, inability to walk, or as needed. Follow up with your primary care physician/orthopedics within 3-5 days for a recheck of your current condition.
[2018-04-17] MEDS ORDERED: METH4PAK PO (04:52)
--- NOTE | 2018-04-17 07:12 | DIAGNOSTIC IMAGING REPORT ---
R PELVIS/UNILATERAL HIP 2-3VIEWS CLINICAL HISTORY: 23 years-old Female presenting with severe hip pain. TECHNIQUE: Single frontal view of the pelvis and frontal and frog-leg lateral views of the right hip were obtained. COMPARISON: 05/12/2014. FINDINGS: Single lag screw fixation across the right femoral neck unchanged from prior. The right femoral head and neck demonstrate deformity that is similar to prior exam. Cystic change evident in the superior portion of the right femoral head. No acute fracture of the left femoral neck. Slight cortical collapse overlying this region is unchanged since at least 2013. The bony pelvis intact. Left hip joint congruent. Left femoral head and neck normal. IMPRESSION: 1. No acute osseous injury. 2. No change in the appearance of the right femoral head and neck. Internal fixation without hardware complication. Findings consistent with known prior osteonecrosis. Electronically signed by: Stone Simon M.D. 04/17/2018 7:11 AM Dictated Date/Time: 04/17/2018 7:06 AM
--- NOTE | 2018-04-17 07:19 | DIAGNOSTIC IMAGING REPORT ---
R HIP-LOWER EXTREMITY WITHOUT CLINICAL HISTORY: 23 years-old Female presenting with severe right hip pain, hx AVN. TECHNIQUE: Multidetector CT of the right hip was performed without the use of intravenous contrast. IV contrast: None. A dose lowering technique was used consistent with the principles of ALARA (as low as reasonably achievable). COMPARISON: Plain radiograph from [address] of abdomen and pelvis from 04/03/2017. CT DOSE (mGy.cm): The estimated cumulative dose is 206.90 mGy.cm. FINDINGS: Activities Volunteer topogram: Single lag screw fixation through the right femoral neck with asymmetry of the right femoral head. Right hip joint congruent. Cannulated right femoral head and neck screw unchanged from prior. No hardware convocation. No acute fracture or acute malalignment. Subchondral cystic change evident at the anterior superior femoral head with overlying cortical irregularity consistent with cortical collapse. This is consistent with known findings of osteonecrosis. Secondary degenerative changes of the right femoral head with osteophytosis. Visualized portion of the bony pelvis intact. Soft tissues of the pelvis within normal limits. No hematoma. Nonspecific infiltration of the subcutaneous tissue of the inferior right gluteal fold. Limited gas noted in the gluteus muscle complex laterally (series 3 image 31). This is of uncertain etiology. No evidence of an overlying soft tissue injury. IMPRESSION: 1. Limited gas in the gluteus muscle complex along the lateral proximal thigh. No apparent overlying subcutaneous injury. It does not appear that the patient has had an intravenous injection, though if the patient has an IV line, this is most likely intravascular in etiology. 2. Stable findings of internal fixation of the right femoral head and neck with deformity consistent with prior osteonecrosis and secondary degenerative change. 3. No acute osseous injury. Electronically signed by: Stone Simon M.D. 04/17/2018 7:17 AM Dictated Date/Time: 04/17/2018 7:06 AM
== END 2018-04-17 04:56 | disposition home or self-care (01) ==
LOC: C.EDB 02:38 → C.EDA 04:56
DX: M25.551 Pain in right hip (principal); J45.909 Unspecified asthma, uncomplicated; I10 Essential (primary) hypertension; F25.0 Schizoaffective disorder, bipolar type; G40.909 Epilepsy, unspecified, not intractable, without status epilepticus; Z87.440 Personal history of urinary (tract) infections; Z80.9 Family history of malignant neoplasm, unspecified; Z83.3 Family history of diabetes mellitus; Z83.79 Family history of other diseases of the digestive system; Z82.49 Family history of ischemic heart disease and other diseases of the circulatory system; Z82.0 Family history of epilepsy and other diseases of the nervous system; F17.210 Nicotine dependence, cigarettes, uncomplicated

== ENCOUNTER 2021-05-12 18:51 | Inpatient (IN) ==
--- NOTE | 2021-05-12 19:27 | Obstetrical Progress Note ---
Date of Service May 12, 2021 Assessment & Plan (1) : Plan: 26 y/o at 37 3/7 wga presenting for r/o labor -BPs mild range, however reported that she was nervous about the contractions starting. Pt has hx of chiari and notes NAGY is not bad enough for medications. There is ?history of htn noted in the past. Will order [facility] labs -Labor - 2cm for me, reportedly closed on Friday. Will recheck in few hours Subjective 26 y/o at 37 3/7 wga w/ MARY LOU 05/30 by US who presents to L&D due to c/o ctx. Ctx began at 430pm reportedly q4min and increasing in frequency and intensity. She then called an ambulance and presented to L&D reporting ctx q2min. +FM, denies LOF, VB. Reports that she was checked on Friday at her visit and was closed however this is not documented. Denies vision change, CP, SOB, RUQ/epigastric pain. +NAGY that started with ctx, has not taken anything as not bad enough PNI: -Arnold Chiari malformation - recommended for CS by neuro at 39 wks, however delivered too rapidly at 33 wk delivery for this -Rh alloimmunized - rec for q2 wk titers till delivery, neg titers so far to 8/4 -G1 PPROM and delivery at 33 wks, s/p quinton -Hx IUGR -Bipolar Physical Exam Genitourinary: Manual OB Exam: + cervical dilation 2 cm, + cervical effacement 70% and + station -2 OB Exam Monitor Tracing: + external FHT monitor used, + external uterine monitor used (irritability) and + category I (140/mod/+accel/- decel) Results & Data ([facility]) Vital Signs (Past 12 Hours) Vital Signs Temp Pulse Resp BP Pulse Ox 05/12/21 19:13 98 H 148/97 H 05/12/21 19:12 101 H 99 05/12/21 19:07 101 H 100 05/12/21 19:03 98.4 F 101 H 152/99 H 05/12/21 19:02 101 H 98 05/12/21 18:57 102 H 149/102 H 100 05/12/21 18:53 18 PG Care Time/CCT Total # of Minutes Spent Total Time Spent with Patient: Total time spent is greater than 50% in coordination of care (as documented) at patient's floor/unit and/or counseling patient: Coding Level of Care Code None Diagnoses Z34.90
[2021-05-12 19:41] LABS: Hematocrit (blood only) 39.8 % (37-47); Hemoglobin 13.4 g/dL (12.0-16.0); Mean Corpuscular Hemoglobin 31.8 pg (25-34); Mean Corpuscular Volume 94.3 fL (80-100); Mean Platelet Volume 10.7 fL (7.4-10.4); Platelet Count 267 K/uL (130-400); RDW Coefficient of Variation 13.3 % (11.5-14.5); RDW Standard Deviation 45.7 fL (36.4-46.3); Red Blood Count 4.22 M/uL (4.2-5.4); White Blood Count 8.81 K/uL (4.8-10.8)
[2021-05-12] MEDS ORDERED: ACETAMINOPHEN 500 MG TAB PO ONE (19:42)
[2021-05-12 19:44] LABS: Mean Corpuscular Hgb Conc 33.7 g/dL (32-36)
[2021-05-12 19:59] LABS: Albumin Level 2.8 gm/dl (3.4-5.0); BUN Creatinine Ratio 10.4 (10-20); Creatinine Clr Calc Pharmacy 120.7 ml/min; Est GFR (Non-African American) 114.8 ml/min; Potassium 3.6 mmol/L (3.5-5.1)
[2021-05-12 20:02] LABS: Albumin Globulin Ratio 0.7 (0.9-2); Bilirubin,Total 0.3 mg/dl (0.2-1); Total Protein 6.8 gm/dl (6.4-8.2)
[2021-05-12 20:11] LABS: Protein Creatinine Ratio Urine 0.1 (0-0.2); Total Protein Urine Random 12.2 mg/dl (0-11.9)
[2021-05-12] MEDS: LACTATED RINGER'S 1,000 ML IV SCH ×2 (21:35→22:44)
--- NOTE | 2021-05-12 21:55 | History & Physical Report ---
Date of Service May 12, 2021 Assessment & Plan (1) Anti-D antibodies present during : (2) COVID-19 affecting childbirth: (3) : Plan: 26 y/o at 37 3/7 wga in early labor and suspected gHTN -Continued mild range BPs, mild range BPs previously noted in chart, one with normal repeat and the other in ER in this after 20 wks. Hard to say if ER had extenuating circumstances w/ BPs as there is also hx anxiety noted however has consistently been mild range BPs during triage thus far. Based on normal BPs otherwise in office and HTN history being remote, would consider pt to be gHTN if meets criteria -Fetus cat 1 -With cervical change, would recommend proceeding with given recommendation by MFM/neurology and pt in agreement. Discussed indications, risks, benefits, alternatives with risks including infection, bleeding, injury to adjacent structures (bowel, bladder, ureters, blood vessels, nerves, baby), possible need for blood transfusion and/or life saving hysterectomy, VTE. Consent reviewed in detail w/ pt and signed after all questions answered to her satisfaction. Discussed with anesthesia, per consult and anesthesiologist environmental compliance specialist, will need to go under general -COVID+ so will maintain appropriate PPE protocols History of Present Illness Chief Complaint: contractions, mild BPs Primary Care Provider: Francisco Spring MD 26 y/o at 37 3/7 wga w/ MARY LOU 05/30 by US who presents to L&D due to c/o ctx. Ctx began at 430pm reportedly q4min and increasing in frequency and intensity. She then called an ambulance and presented to L&D reporting ctx q2min. +FM, denies LOF, VB. Reports that she was checked on Friday at her visit and was closed however this is not documented. Denies vision change, CP, SOB, RUQ/epigastric pain. +NAGY that started with ctx, has not taken anything as not bad enough. Initially was 2cm on check, progressed to 3cm. BPs have remained mild range as well, PET labs were wnl. Pt notes there is a hx of HTN 10 yrs ago that was possibly medication related but she was never considered a chronic HTN in prior and appears to have been dx with gHTN prior to PPROM. PNI: -Arnold Chiari malformation - recommended for CS by neuro previously, however delivered too rapidly at 33 wk delivery of IUGR baby for this. As neuro had recommended CS, [facility] had rec scheduling CS at 39 wks -Rh alloimmunized - rec for q2 wk titers till delivery per [facility], neg titers so far to 8/4 -G1 PPROM and delivery at 33 wks, s/p quinton -Hx IUGR -Bipolar -COVID+ Past [facility] Hx: G1 2019 at 33wks, FGR, PPROM G2 current Menarche 11, cycles q28-30d denies hx abnl pap, 02/2019 neg cytology denies hx STI Allergies Allergy/AdvReac Type Severity Reaction Status Date / Time lamotrigine Allergy Intermediate Rash, skin Verified 05/12/21 18:58 peeling sulfamethoxazole Allergy Intermediate Generalized Verified 05/12/21 18:58 Rash trimethoprim Allergy Intermediate Generalized Verified 05/12/21 18:58 Rash quetiapine Allergy Mild Skin Verified 05/12/21 18:58 peeling Sulfa (Sulfonamide AdvReac Severe Stroke/seizure-like Verified 05/12/21 18:58 Antibiotics) activity, rash Home Medications Medication Instructions Recorded Confirmed Type prenat.vits,risa,rrt-vcso-hziel 1 tab PO DAILY 10/20/20 05/12/21 History ondansetron 4 mg disintegrating 4 mg PO Q6 PRN #14 tab 02/08/21 05/12/21 Rx tablet Patient History Medical History Acid reflux with ADHD Asthma Stable Bipolar disorder, unspecified No meds during Chiari malformation Verbal from neuro ([facility]): 12/09/18: Patient evaluated in neurology office on 12/07/18. 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 "Spinal anesthesia is contraindicated.. epidural is okay" from a neurologic standpoint if needed. Depression Migraine Ovarian cyst Schizoaffective disorder, bipolar type Seizure disorder ?seizures (simple/partial), no conclusive findings on EEG, most recent episode 1+ years ago Surgical History History of appendectomy History of elbow surgery Right History of hip surgery Fracture repair as child History of ovarian cystectomy History of wisdom tooth extraction Family History Unknown Diabetes Heart disease Hypertension Cancer Grandmother Breast cancer Hypertension Ovarian cyst Grandfather Bleeding disorder Diabetes Hypertension Mother Anemia Deep vein thrombosis Ovarian cyst Hypertension Aunt Cardiac disorder Diabetes Father Hypercholesteremia Kidney stone Hypertension Grandfather Liver disease Hypertension Aunt Thyroid disease Grandmother Ovarian cancer Hypertension Ovarian cyst Family/Other Cleft lip Uncle Diabetes Grandfather Hypertension Other No pertinent family history Social History Smoking Status: Never smoker Tobacco Type: Cigarettes Second Hand Exposure: No; Hx Alcohol Use: No Hx Substance Use: No Preferred Language: Irish Communication Ability: Effective Director Building Required: No Beliefs That Will Affect Care: None marital status: Single marital status details: Ramy Escobar (38) [phone] Current Living Situation: Significant Other Current Living Situation Comment: Son lives with Ramy's brother flight crew time clerk. Patient reports shared custody. current occupational status: unemployed Other Information That Helps Us Care for You: No Feels Safe at Home: Yes Safety Concerns: Feels Safe At This Time Assistive Devices: Glasses Physical Exam Constitutional: WD/WN, vitals as above Respiratory: normal respiratory effort; no respiratory distress and no labored breathing Genitourinary: OB Exam Abdomen: + vertex Manual OB Exam: + cervical dilation 3 cm, + cervical effacement 70% and + station -2 OB Exam Monitor Tracing: + external uterine monitor used (irreg ctx) and + category I (130/mod/+accel/-decel) Results & Data ([facility]) Vital Signs (Past 12 Hours) Vital Signs Temp Pulse Resp BP Pulse Ox 05/12/21 21:40 97.7 F 20 05/12/21 21:10 90 140/89 05/12/21 20:55 83 137/93 05/12/21 20:28 88 149/101 H 05/12/21 20:13 86 148/100 H 05/12/21 19:58 87 141/93 H 05/12/21 19:44 88 150/90 H 05/12/21 19:22 90 100 05/12/21 19:17 100 H 99 05/12/21 19:13 98 H 148/97 H 05/12/21 19:12 101 H 99 05/12/21 19:07 101 H 100 05/12/21 19:03 98.4 F 101 H 152/99 H 05/12/21 19:02 101 H 98 05/12/21 18:59 98.4 F 18 05/12/21 18:57 102 H 149/102 H 100 05/12/21 18:53 18 Laboratory Results OB Labs: Blood Type O Negative 10/20/20 Antibody Screen POSITIVE A 10/20/20 Hemoglobin 12.2 g/dL (12.0-16.0) 02/08/21 Hematocrit 35.4 % (37-47) L 02/08/21 Mean Corpuscular Volume 92.9 fL (80-100) 02/08/21 Platelet Count 273 K/uL (130-400) 02/08/21 Rubella IgG Antibody Immune (Immune) 10/20/20 Rapid Plasma Reagin Nonreactive (Nonreactive) 10/20/20 Hepatitis B Surface Antigen Neg (Neg) 10/20/20 HIV (1&2) Ab and P24 Ag, 4th Gener Neg (Neg) 10/20/20 Glucose 1 Hour 50 gm Load 92 mg/dl (70-130) 12/15/20 Maternal Serum Alpha Fetoprotein 20.6 ng/mL 12/15/20 OB Optional Labs: Chlamydia trachomatis RNA NOT DETECTED (NOT DETECTED) 10/20/20 Neisseria gonorrhoeae RNA NOT DETECTED (NOT DETECTED) 10/20/20 Thyroid Stimulating Hormone (TSH) 1.420 uIu/ml (0.300-4.500) 08/21/20 Alpha Fetoprotein Triple Screen SEE NOTE 12/15/20 Labs Reviewed: cf/sma neg prior preg. cfdna low risk afp neg gbs neg Diagnostic Findings 04/24 EFW 38%, DVP 5.8, ant plac Coding Level of Care Code None Diagnoses Z34.90 Anti-D antibodies present during O36.0190 COVID-19 affecting childbirth O98.52; U07.1
[2021-05-12] MEDS ORDERED: CITRIC ACID/SODIUM CITRATE 15 ML UDC PO SCH (22:00)
[2021-05-12] MEDS ORDERED: AZITHROMYCIN 500 MG in DEXTROSE 5% 250 ML IV SCH (22:00)
[2021-05-12] MEDS ORDERED: ceFAZolin 2000MG 2,000 MG/15 ML SYR IV SCH (22:00)
[2021-05-12] MEDS ORDERED: SODIUM CHLORIDE 0.9% 250 ML IV PRN (22:22)
[2021-05-12] MEDS ORDERED: fentaNYL citrate 100 MCG/2 ML VIAL ONE (22:32)
[2021-05-12] MEDS ORDERED: HYDROmorphone INJ 2 MG/ML SYR/VIAL ONE (22:33)
[2021-05-12] MEDS ORDERED: ONDANSETRON INJ 2 MG/ML 2 ML VIAL IV PRN (22:40)
[2021-05-12] MEDS ORDERED: ATROPINE SULFATE 0.1 MG/ML 10ML SYR IV PRN (22:40)
[2021-05-12] MEDS ORDERED: MEPERIDINE HCL 25 MG/ML CARP/VIAL IV PRN (22:40)
[2021-05-12] MEDS ORDERED: fentaNYL citrate 100 MCG/2 ML VIAL IV PRN (22:40)
[2021-05-12] MEDS ORDERED: LABETALOL HCL IV 5 MG/ML 20ML IV PRN (22:40)
[2021-05-12] MEDS ORDERED: KETOROLAC 30 MG/ML VIAL IV PRN (22:40)
[2021-05-12] MEDS ORDERED: PHENYLEPHRINE 100MCG/ML 5ML SYR IV PRN (22:40)
[2021-05-12] MEDS ORDERED: ePHEDrine sulfate 50 MG/ML AMP IV PRN (22:40)
[2021-05-12] MEDS ORDERED: HYDROmorphone INJ 2 MG/ML SYR/VIAL IV PRN (22:40)
--- NOTE | 2021-05-12 23:00 | Anesthesiology Consultation ---
Date of Service May 12, 2021 Assessment & Plan (1) Encounter for pre-operative examination: Chart Review Chart Review: Acceptable Risk for Surgery and Patient NOT seen in Pre Admission Testing Consults Requested none History Surgery Operation Date: 05/12/21 19:30 Proposed Procedures p Section in LD - Khloe Ibanez MD Height/Weight Height: 5 ft 6 in Weight: 73.936 kg Allergies Allergy/AdvReac Type Severity Reaction Status Date / Time lamotrigine Allergy Intermediate Rash, skin Verified 05/12/21 18:58 peeling sulfamethoxazole Allergy Intermediate Generalized Verified 05/12/21 18:58 Rash trimethoprim Allergy Intermediate Generalized Verified 05/12/21 18:58 Rash quetiapine Allergy Mild Skin Verified 05/12/21 18:58 peeling Sulfa (Sulfonamide AdvReac Severe Stroke/seizure-like Verified 05/12/21 18:58 Antibiotics) activity, rash Medications Home Medications Medication Instructions Recorded Confirmed Last Taken prenat.vits,risa,iwy-thzl-tiuzf 1 tab PO DAILY 10/20/20 05/12/21 05/12/21 08:00 ondansetron 4 mg disintegrating 4 mg PO Q6 PRN #14 tab 02/08/21 05/12/21 Unknown tablet Active Medications Generic Name Dose Route Start Last Admin Trade Name Freq PRN Reason Stop Dose Admin Azithromycin 500 mg/ Dextrose 255 mls @ 127.5 mls/hr 05/12/21 22:00 05/12/21 22:10 IV 05/12/21 23:59 127.5 mls/hr PREOP ROSETTE Administration Lactated Ringer's 1,000 mls @ 125 mls/hr 05/12/21 22:30 05/12/21 22:44 Lr IV 06/11/21 22:29 125 mls/hr .Q8H ROSETTE Administration NPO Date Last Intake of Fluids: 05/12/21 Time Last Intake of Fluids: 12:00 Date Last Intake of Solids: 05/12/21 Time Last Intake of Solids: 06:00 Past Medical History Medical History Acid reflux with ADHD Asthma Stable Bipolar disorder, unspecified No meds during Chiari malformation Verbal from neuro ([facility]): 12/09/18: Patient evaluated in neurology office on 12/07/18. 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 "Spinal anesthesia is contraindicated.. epidural is okay" from a neurologic standpoint if needed. COVID-19 affecting childbirth Depression Gestational hypertension Migraine Ovarian cyst Schizoaffective disorder, bipolar type Seizure disorder ?seizures (simple/partial), no conclusive findings on EEG, most recent episode 1+ years ago Past Family History Family History Unknown Diabetes Heart disease Hypertension Cancer Grandmother Breast cancer Hypertension Ovarian cyst Grandfather Bleeding disorder Diabetes Hypertension Mother Anemia Deep vein thrombosis Ovarian cyst Hypertension Aunt Cardiac disorder Diabetes Father Hypercholesteremia Kidney stone Hypertension Grandfather Liver disease Hypertension Aunt Thyroid disease Grandmother Ovarian cancer Hypertension Ovarian cyst Family/Other Cleft lip Uncle Diabetes Grandfather Hypertension Other No pertinent family history Past Surgical History Surgical History History of appendectomy History of elbow surgery Right History of hip surgery Fracture repair as child History of ovarian cystectomy History of wisdom tooth extraction Social History Smoking Status: Never smoker tobacco type: cigarettes Hx Alcohol Use: No Hx Substance Use: No substance use type: does not use Physical Exam Vital Signs Last Vital Signs Temp 36.5 C 05/12/21 21:40 Pulse 81 05/12/21 22:54 Resp 20 05/12/21 21:40 BP 148/98 H 05/12/21 22:54 Pulse Ox 100 05/12/21 19:22 Testing Laboratory Results 05/12/21 19:31 05/12/21 19:31 Blood Type O Negative 05/12/21 19:31 Antibody Screen POSITIVE A 05/12/21 19:31
[2021-05-12] MEDS ORDERED: PROPOFOL IV EMULSION 10 MG/ML 20 ML VIAL IV ONE (23:59)
[2021-05-13 00:17] LABS: Base Excess Cord Venous Blood -3.8 mEq/L (-7.7-1.9); Cord Venous Blood HCO3 22 mmol/L (18.4-26.8); Cord Venous Blood PCO2 44 mmHg (30.4-57.2); Cord Venous Blood PO2 28 mmHg (14.1-43.3); Cord Venous Blood pH 7.32 (7.20-7.44)
[2021-05-13] MEDS ORDERED: HYDROmorphone Bolus from PCA IV STA (00:41)
--- NOTE | 2021-05-13 00:52 | Operative Report ---
PG Post Operative Report Pre & Post Diagnosis Operation Date: 05/12/21 19:30 Pre-Op Diagnosis: 1. IUP @37 Weeks 2. Labor 3. Gestational HTN 4. Arnold Chiari malformation with recommendation for delivery 5. Rh alloimmunized 6. COVID positive Post-Op Diagnosis: 1. IUP @37 Weeks 2. Labor 3. Gestational HTN 4. Arnold Chiari malformation with recommendation for delivery 5. Rh alloimmunized 6. COVID positive I identified the patient and participated in the time-out.: Yes Procedure Operation Date: 05/12/21 19:30 Actual Procedures p primary low transverse section. Live female child 05/12/21 @2339 - Khloe Ibanez MD Surgeon Khloe Ibanez MD Lamp Mechanic CHAIM Brown Estimated Blood Loss 700 Findings Consistent with Post-Op Diagnosis Normal appearing uterus, bilateral fallopian tubes, ovaries. Viable female infant, weight pending, APGARs of 7 and 9 at 1 and 5 minutes, respectively Fluids 1100cc crystalloid, UOP 400cc by kirk catheter Specimens Cord blood, blood gases, placenta hold Drains Kirk Anesthesia Type General Complications none Disposition Accompanied Patient To Recovery: Yes Disposition: L&D Indications 26 y/o at 37 3/7 wga presented with complaint of contractions. On arrival she was found to be 2cm when she notes she was previously closed. Blood pressures were noted to be in the mild range and so pre-eclampsia labs were drawn and within normal limits. In conjunction with labs, covid swab was obtained and then found to be positive. She was then moved to a negative pressure room with appropriate precautions taken. She was then checked approximately 2 hours later and found to have progressed to 3cm. The patient has a history of Arnold Chiari malformation for which she had been previously recommended for delivery. Anesthesia consult had been obtained previously and had given consideration for general anesthesia. Given progression in cervix, she was recommended to undergo today. Additionally, she continued to have mild range BPs and met critieria for gestational hypertension. Description of Procedure The patient was taken to the operating room after consents were ensured. The patient was properly identified. The patient was placed in a dorsal supine position with left lateral tilt, then prepped and draped in normal sterile fashion. Surgical time out was performed. Antibiotics were given for prophylaxis. Anesthesia was tested to ensure adequate surgical levels. She then underwent general anesthesia. Pfannenstiel skin incision was performed and carried down to the underlying fascia with a knife. The fascia was then nicked in the midline and extended laterally bluntly. Superior portion of the fascia was grasped with Kochers x2 and elevated off the underlying rectus muscles using blunt dissection. Inferior portion of the fascia was then grasped with Ilene clamps x2 and also elevated off the underlying muscles with blunt dissection. Midline was identified. The peritoneum was then entered and extended to provide adequate room for delivery of baby. The hand was inserted into the abdomen, uterus was noted to be clear of adhesions. Bladder blade was inserted, bladder flap was created in the usual fashion. A low transverse uterine incision was made in the uterus and extended bluntly in a superior to inferior fashion. At this time a portion of the placenta did deliver through the hysterotomy and was avoided. Amniotomy was made with clear fluid at the time of rupture. head was grasped and elevated through the hysterotomy in an atraumatic fashion. The baby delivered in ALMA position, no nuchal cord. Remainder of the body delivered without incident. Nose and mouth were bulb suctioned on the surgical field. The cord was double clamped and cut, baby was handed off to awaiting pediatrics staff. Cord segment and blood were obtained. Placenta was then expressed from the uterus. The uterus was exteriorized. Several passes were made inside the uterus to remove the remaining membranes. Attention was then turned to the hysterotomy, which was then closed with a running locked suture of 0 Vicryl on a CTX needle. An imbricating layer was then performed using 0-Monocryl. There was noted to be good hemostasis. The posterior cul-de-sac was then inspected and cleaned of clot and debris. The hysterotomy was again inspected and noted to be hemostatic. The uterus was returned to the abdomen. The right and left pericolic gutters were cleaned of all clot and debris. The hysterotomy was again noted to be hemostatic. Space of Retzius was noted to be hemostatic. The fascia was then closed with a running suture of 0 Vicryl on a CT1 needle. Subcutaneous tissue was copiously irrigated and noted to be hemostatic. Subcutaneous tissue was re-approximated using 2-0 plain gut. The skin was then closed with a running suture of 3-0 Monocryl in a subcuticular fashion. At termination of the procedure, the fundal pressure was applied and a moderate amount of lochia was expressed. Pressure dressing was applied to the patient. She tolerated the procedure well. All sponge, needle, instrument counts were correct x 2. I attest to the content of the Intraoperative Record and any orders documented therein. Any exceptions are noted below. OB Procedure charges OB Charges 64204 C/S
[2021-05-13] MEDS ORDERED: SUPERCREAM 0.870% 15 GM JAR EXT PRN (01:07)
[2021-05-13] MEDS ORDERED: HYDROCORTISONE ACETATE 25 MG SUPP PR PRN (01:07)
[2021-05-13] MEDS ORDERED: MAGNESIUM HYDROXIDE SUSP 30 ML UDC PO PRN (01:07)
[2021-05-13] MEDS ORDERED: BENZOCAINE 20% AER SPR 82.5 GM CAN EXT PRN (01:07)
[2021-05-13] MEDS ORDERED: DIPHTHERIA/TETANUS/PERTUSSIS 0.5 ML SYR/VIAL IM ONE (01:07)
[2021-05-13] MEDS ORDERED: diphenhydrAMINE Capsule 25 MG CAP PO PRN (01:07)
[2021-05-13] MEDS ORDERED: NALOXONE HCL 0.4 MG/1 ML VIAL/CARP IV PRN (01:07)
[2021-05-13] MEDS ORDERED: SENNA 8.6 MG TAB PO PRN (01:07)
[2021-05-13] MEDS ORDERED: PROMETHAZINE HCL 25 MG in SODIUM CHLORIDE 0.9% 50 ML IV PRN (01:07)
[2021-05-13] MEDS ORDERED: HYDROmorphone PCA 30 MG/30 ML IV PRN (01:07)
[2021-05-13] MEDS ORDERED: diphenhydrAMINE 50 MG/ML VIAL IV PRN (01:07)
[2021-05-13] MEDS ORDERED: SODIUM CHLORIDE 0.9% 1000ML 1,000 ML IV SCH (01:07)
[2021-05-13] MEDS ORDERED: KETOROLAC 30 MG/ML VIAL IV PRN (01:07)
--- NOTE | 2021-05-13 01:10 | Anesthesiology Progress Note ---
Date of Service May 13, 2021 Anesthesia Post Procedure Vital Signs Vital Signs: Temp Pulse Resp BP Pulse Ox 05/13/21 01:05 82 148/101 H 05/13/21 01:04 76 99 05/13/21 00:59 76 98 05/13/21 00:55 76 140/94 05/13/21 00:54 82 99 05/12/21 23:01 97 H 152/106 H 05/12/21 22:54 81 148/98 H 05/12/21 22:39 70 153/97 H 05/12/21 22:24 77 153/104 H 05/12/21 22:11 76 151/96 H 05/12/21 22:09 80 158/97 H 05/12/21 21:40 36.5 C 20 05/12/21 21:10 90 140/89 05/12/21 20:55 83 137/93 05/12/21 20:28 88 149/101 H 05/12/21 20:13 86 148/100 H 05/12/21 19:58 87 141/93 H 05/12/21 19:44 88 150/90 H 05/12/21 19:22 90 100 05/12/21 19:17 100 H 99 05/12/21 19:13 98 H 148/97 H 05/12/21 19:12 101 H 99 05/12/21 19:07 101 H 100 05/12/21 19:03 36.9 C 101 H 152/99 H 05/12/21 19:02 101 H 98 05/12/21 18:59 36.9 C 18 05/12/21 18:57 102 H 149/102 H 100 05/12/21 18:53 18 Transfer of Care Handoff Completed per policy Notes Mental Status: alert / awake / arousable Patient Amnestic to Procedure: Yes Nausea / Vomiting: adequately controlled Pain: adequately controlled Airway Patency, RR, SpO2: stable & adequate BP & HR: stable & adequate Hydration State: stable & adequate Anesthetic Complications: no major complications apparent and Pt Satisfied with anesthetic care Notes: The patient was extubated without incident in the OR. Twenty minutes were waited as per [place] [facility] protocol before leaving the OR. The patient was brought to her negative pressure room on the fourth floor to recover. She is awake and comfortable with some incisional site pain. She is slightly hypertensive which was her baseline but her other vital signs are stable.
[2021-05-13] MEDS ORDERED: OXYTOCIN 20 UNITS in LACTATED RINGER'S 1,000 ML IV SCH (01:30)
[2021-05-13] MEDS: ONDANSETRON INJ 2 MG/ML 2 ML VIAL IV PRN ×2 (03:54→07:58)
[2021-05-13] MEDS ORDERED: CITRIC ACID/SODIUM CITRATE 15 ML UDC PO SCH (06:00)
[2021-05-13] MEDS: LACTATED RINGER'S 1,000 ML IV SCH ×4 (07:56→13:57)
[2021-05-13] MEDS: FERROUS SULFATE 325 MG TAB PO SCH (08:20)
[2021-05-13] MEDS: DOCUSATE SODIUM 100 MG CAP PO SCH ×2 (08:20→20:26)
[2021-05-13] MEDS: PRENATAL VITAMIN 1 TAB PO SCH (08:20)
[2021-05-13] MEDS: SIMETHICONE 80 MG CHEW PO SCH ×4 (08:20→20:32)
--- NOTE | 2021-05-13 08:53 | Obstetrical Progress Note ---
Date of Service May 13, 2021 Assessment & Plan (1) Gestational hypertension: (2) COVID-19 affecting childbirth: (3) state: 26 yo POD 1 from pLTCS due to gHTN, labor and chiari malformation recommending CS, doing well -Continue routine postop CS care, for kirk removal and dressing removal later, will d/c dPCA once tolerating more PO -O-/rubella immune/, known Rh alloimmunized so rhogam not indicated -gHTN - continue to monitor BPs, will need 1 wk BP check -COVID + - continues to be asymptomatic Subjective Ambulation: ambulating normally Voiding: kirk catheter in place Passing Gas:: No Diet Tolerance:: clear liquids Lochia:: Moderate Feeding Type:: breast feeding Pain well managed with financial retirement plan specialist Review of Systems Denies fevers, chills, n/v, NAGY, CP, SOB Physical Exam Constitutional WD/WN, vitals as above no acute distress Respiratory normal respiratory effort, lungs clear to auscultation Cardiovascular RRR, no murmur, no edema Gastrointestinal (Abdomen) Inspection/Auscultation: + abdominal surgical scar (Dressing c/d/i) Percussion/Palpation: abdomen soft; abdomen nontender fundus firm at umbilicus and NT Musculoskeletal BLE symmetric, nonerythematous, nontender Results & Data ([facility]) Vital Signs (Past 12 Hours) Vital Signs Temp Pulse Pulse Resp BP BP Pulse Ox 05/13/21 07:35 97.5 F L 92 H 16 146/99 H 98 05/13/21 04:35 97.7 F 78 18 125/83 97 05/13/21 04:14 80 100 05/13/21 04:09 74 98 05/13/21 04:05 70 129/74 05/13/21 04:04 73 97 05/13/21 03:59 86 99 05/13/21 03:55 96.8 F L 71 18 128/76 05/13/21 03:54 76 100 05/13/21 03:49 92 H 98 05/13/21 03:45 88 141/91 H 05/13/21 03:44 87 98 05/13/21 03:39 81 100 05/13/21 03:35 73 143/92 H 05/13/21 03:34 73 97 05/13/21 03:29 71 99 05/13/21 03:25 71 127/90 05/13/21 03:24 86 99 05/13/21 03:20 16 05/13/21 03:19 86 100 05/13/21 03:15 85 120/89 05/13/21 03:14 79 100 05/13/21 03:09 70 100 05/13/21 03:05 76 127/91 05/13/21 03:04 75 99 05/13/21 02:59 76 99 05/13/21 02:55 84 16 140/87 05/13/21 02:54 79 99 05/13/21 02:49 81 100 05/13/21 02:47 84 145/96 H 05/13/21 02:44 87 100 05/13/21 02:39 79 98 05/13/21 02:35 105 H 140/97 05/13/21 02:34 96 H 100 05/13/21 02:32 93 H 131/95 05/13/21 02:29 99 H 98 05/13/21 02:25 18 05/13/21 02:24 98 H 100 05/13/21 02:19 100 H 100 05/13/21 02:14 99 H 99 05/13/21 02:09 95 H 99 05/13/21 02:05 81 144/95 H 05/13/21 02:04 93 H 99 05/13/21 01:59 93 H 99 05/13/21 01:57 82 146/97 H 05/13/21 01:56 84 172/109 H 05/13/21 01:55 18 05/13/21 01:54 89 100 05/13/21 01:49 99 H 100 05/13/21 01:45 77 18 145/98 H 05/13/21 01:44 79 96 05/13/21 01:39 87 99 05/13/21 01:35 83 18 146/91 H 05/13/21 01:34 84 99 05/13/21 01:29 79 98 05/13/21 01:25 73 18 150/98 H 05/13/21 01:24 74 98 05/13/21 01:19 67 98 05/13/21 01:15 61 18 158/102 H 05/13/21 01:14 69 99 05/13/21 01:09 80 99 05/13/21 01:05 82 18 148/101 H 05/13/21 01:04 76 99 05/13/21 00:59 76 98 05/13/21 00:55 97.5 F L 76 18 140/94 05/13/21 00:54 82 99 05/12/21 23:01 97 H 152/106 H 05/12/21 22:54 81 148/98 H 05/12/21 22:39 70 153/97 H 05/12/21 22:24 77 153/104 H 05/12/21 22:11 76 151/96 H 05/12/21 22:09 80 158/97 H 05/12/21 21:40 97.7 F 20 05/12/21 21:10 90 140/89 05/12/21 20:55 83 137/93
[2021-05-13] MEDS ORDERED: MoRPHine SULFATE 2 MG/ML CARP IV PRN (10:38)
[2021-05-13 14:43] LABS: Hematocrit (blood only) 25.2 % (37-47); Hemoglobin 8.6 g/dL (12.0-16.0); Mean Corpuscular Hemoglobin 31.7 pg (25-34); Mean Corpuscular Hgb Conc 34.1 g/dL (32-36); Mean Platelet Volume 10.3 fL (7.4-10.4); Platelet Count 228 K/uL (130-400); RDW Coefficient of Variation 13.1 % (11.5-14.5); RDW Standard Deviation 44.3 fL (36.4-46.3); Red Blood Count 2.71 M/uL (4.2-5.4); White Blood Count 15.48 K/uL (4.8-10.8)
[2021-05-13] MEDS: IBUPROFEN 600 MG TAB PO PRN ×2 (16:29→20:27)
[2021-05-13] MEDS: oxyCODONE/ACETAMINOPHEN 5mg/325mg TAB PO PRN ×2 (16:30→20:27)
[2021-05-14] MEDS: IBUPROFEN 600 MG TAB PO PRN ×4 (00:25→12:31)
[2021-05-14] MEDS: oxyCODONE/ACETAMINOPHEN 5mg/325mg TAB PO PRN ×4 (00:25→12:31)
[2021-05-14 05:39] LABS: Basophils # (auto) 0.02 K/uL (0-0.2); Basophils % (auto) 0.2 %; Eosinophils # (auto) 0.08 K/uL (0-0.5); Eosinophils % (auto) 0.7 %; Hematocrit (blood only) 25.7 % (37-47); Hemoglobin 8.8 g/dL (12.0-16.0); Immature Granulocytes # (auto) 0.02 K/uL (0.00-0.02); Immature Granulocytes % (auto) 0.2 %; Lymphocytes # (auto) 2.78 K/uL (1.2-3.4); Lymphocytes % (auto) 23.8 %; Mean Corpuscular Hemoglobin 31.7 pg (25-34); Mean Corpuscular Hgb Conc 34.2 g/dL (32-36); Mean Corpuscular Volume 92.4 fL (80-100); Mean Platelet Volume 10.1 fL (7.4-10.4); Monocytes # (auto) 0.93 K/uL (0.11-0.59); Monocytes % (auto) 7.9 %; Neutrophils # (auto) 7.87 K/uL (1.4-6.5); Neutrophils % (auto) 67.2 %; Platelet Count 239 K/uL (130-400); RDW Coefficient of Variation 13.4 % (11.5-14.5); RDW Standard Deviation 44.5 fL (36.4-46.3); Red Blood Count 2.78 M/uL (4.2-5.4)
--- NOTE | 2021-05-14 07:29 | Obstetrical Progress Note ---
Date of Service May 14, 2021 Assessment & Plan (1) Gestational hypertension: (2) COVID-19 affecting childbirth: (3) state: 26 yo POD 2 from pLTCS due to gHTN, labor and chiari malformation recommending CS, doing well -Continue routine postop CS care, meeting pp milestones -O-/rubella immune/, known Rh alloimmunized so rhogam not indicated and baby Rh neg -gHTN - normotensive to mildrange. continue to monitor BPs, will need 1 wk BP check -COVID + - continues to be asymptomatic -plan for d/c home tomorrow Subjective Ambulation: ambulating normally Voiding: no voiding problems Passing Gas:: Yes Diet Tolerance:: regular diet Lochia:: Small Feeding Type:: bottle feeding Pain well managed with medication Review of Systems Denies fevers, chills, n/v, NAGY, CP, SOB Physical Exam Constitutional WD/WN, vitals as above no acute distress Respiratory normal respiratory effort, lungs clear to auscultation normal respiratory effort; no respiratory distress and no labored breathing Cardiovascular RRR, no murmur, no edema Gastrointestinal (Abdomen) Inspection/Auscultation: + abdominal surgical scar (incision c/d/i) Percussion/Palpation: abdomen soft; abdomen nontender fundus firm at umbilicus Results & Data ([facility]) Vital Signs (Past 12 Hours) Vital Signs Temp Pulse Resp BP Pulse Ox 05/14/21 00:05 97.7 F 78 18 138/92 99 05/13/21 19:45 98.1 F 84 18 135/86 99
[2021-05-14] MEDS: DOCUSATE SODIUM 100 MG CAP PO SCH (07:52)
[2021-05-14] MEDS: FERROUS SULFATE 325 MG TAB PO SCH (07:52)
[2021-05-14] MEDS: PRENATAL VITAMIN 1 TAB PO SCH (07:52)
[2021-05-14] MEDS: SIMETHICONE 80 MG CHEW PO SCH ×2 (07:52→12:32)
[2021-05-14] MEDS ORDERED: bisacodyL 5 MG TABEC PO SCH (20:00)
[2021-05-15] MEDS ORDERED: bisacodyL 10 MG SUPP PR PRN (00:39)
--- NOTE | 2021-05-18 13:33 | Discharge Summary ---
Date of Service May 18, 2021 Admission HPI Per Admitting Provider 26 y/o at 37 3/7 wga w/ MARY LOU 05/30 by US who presents to L&D due to c/o ctx. Ctx began at 430pm reportedly q4min and increasing in frequency and intensity. She then called an ambulance and presented to L&D reporting ctx q2min. +FM, denies LOF, VB. Reports that she was checked on Friday at her visit and was closed however this is not documented. Denies vision change, CP, SOB, RUQ/epigastric pain. +NAGY that started with ctx, has not taken anything as not bad enough. Initially was 2cm on check, progressed to 3cm. BPs have remained mild range as well, PET labs were wnl. Pt notes there is a hx of HTN 10 yrs ago that was possibly medication related but she was never considered a chronic HTN in prior and appears to have been dx with gHTN prior to PPROM. PNI: -Arnold Chiari malformation - recommended for CS by neuro previously, however delivered too rapidly at 33 wk delivery of IUGR baby for this. 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 Hx: G1 2019 at 33wks, FGR, PPROM G2 current Menarche 11, cycles q28-30d denies hx abnl pap, 02/2019 neg cytology denies hx STI Admission Exam (Per Admitting) Constitutional WD/WN, vitals as above no acute distress Respiratory normal respiratory effort, lungs clear to auscultation normal respiratory effort; no respiratory distress and no labored breathing Cardiovascular RRR, no murmur, no edema Gastrointestinal (Abdomen) Inspection/Auscultation: + abdominal surgical scar (incision c/d/i) Percussion/Palpation: abdomen soft; abdomen nontender Genitourinary OB Exam Abdomen: + vertex Manual OB Exam: + cervical dilation + 3 cm, + cervical effacement + 70% and + station + -2 OB Exam Monitor Tracing: + external FHT monitor used, + external uterine monitor used (irreg ctx) and + category I (130/mod/+accel/-decel) Discharge Data Consultations 05/12/21 21:35 Consult Anesthesiology Stat Procedures Performed Operation Date: 05/12/21 19:30 Actual Procedures p primary lower transverse section. Live female child 05/12/21 @2339 - Khloe Ibanez MD Hospital Course (1) Gestational hypertension: (2) COVID-19 affecting childbirth: (3) state: Pt was found to have progressed in cervical check and also met criteria for gHTN, was recommended for delivery at this time due to GA. See operative report for details. , the patient did well and met all milestones. She was then discharged home on POD2. Planned for BP check 1 wk after delivery. Coding Level of Care Code None Diagnoses Gestational hypertension O13.9 COVID-19 affecting childbirth O98.52; U07.1 state Z39.2
== END 2021-05-14 15:12 | disposition home or self-care (01) | DRG 786 ==
LOC: OPB 18:51 → 4S1 18:53 → 4W 20:41 → 3E 05-13 04:45

== ENCOUNTER 2022-12-03 06:38 | Inpatient (IN) ==
[~2022-12-03 06:38] MED LIST changes: -ABL10 PO; +CITRIC ACID/SODIUM CITRATE 15 ML UDC PO SCH; -MULT-506 PO; -NCR2 MT; -OXCA300T2 PO; -TRAZ50TA35 PO; +ceFAZolin 2000MG 2,000 MG/15 ML SYR IV SCH
--- NOTE | 2022-12-03 07:30 | History & Physical Report ---
Date of Service December 03, 2022 Assessment & Plan (1) PROM (premature rupture of membranes): Plan: Ferning is positive nitrazine is positive AmniSure is positive the patient is clearly ruptured of membranes she is scheduled for repeat we will start an IV Labs will be ordered reviewed the risks of per her notes and documentation in the chart she will require a general anesthetic as she has a Chiari morph malformation Repeat section. The patient was counseled to the nature of the procedure including alternatives such as labor. Risks were discussed including bleeding infection injury to bowel bladder ureter vessels and even baby. The risks of internal organ injury were discussed as being higher with prior sections. Deep Vein Thrombosis, pulmonary embolus and breakdown of the incision discussed. Deep vein thrombosis pulmonary embolus hernia and failure of the incision to heal were discussed Patient verbalized understanding of this and was given ample time to ask questions History of Present Illness Primary Care Provider: NO PCP Visit Includes a Sensitive Exam of the Pt/Pt Requested: No Visit MARY LOU Calculator Estimated Delivery Date Method Current WG Current Estimate 12/28/22 LMP (Certain) 35w 2d Other Estimates 01/03/23 Ultrasound #1 34w 3d 12/28/22 Ultrasound #2 35w 2d LMP: 03/02/20 : 3 Full term: 1 Premature: 1 Total Number of Induced Abortions: 0 Total Number of Spontaneous Abortions: 0 Ectopics: 0 Multiple births: 0 Number of Living Children: 2 and Delivery Plans Need for rhogam d/t Rh negative mother *Rhogam given 10/21/22-HK Anti-D antibody *Antibody Titers q2 weeks until delivery Titers <1 on 10/23 growth us around 11/18/22 Hx PPROM with delivery 33 weeks Arnold Chiari malformation * Anesthesia consult with 1st - No epidural Multiple medical issues *MFM consult 11/19/22 C/S SCHEDULED FOR 12/27/[address] MADERA AND DR[address] CHAO ASSIST Patient reports a sudden gush of fluid this morning and presented to labor and delivery via ambulance patient is not bryson her heart rate is reactive Allergies Allergy/AdvReac Type Severity Reaction Status Date / Time lamotrigine Allergy Intermediate Rash, skin Verified 11/26/22 04:17 peeling sulfamethoxazole Allergy Intermediate Generalized Verified 11/26/22 04:17 Rash trimethoprim Allergy Intermediate Generalized Verified 11/26/22 04:17 Rash quetiapine Allergy Mild Skin Verified 11/26/22 04:17 peeling Sulfa (Sulfonamide AdvReac Severe Stroke/seizure-like Verified 11/26/22 04:17 Antibiotics) activity, rash Home Medications Medication Instructions Recorded Confirmed Type vit no.95-ferrous 1 tab PO QAM 07/28/22 11/26/22 History fumarate 28 mg-folic acid 800 mcg tablet () Patient History Medical History (Updated 12/03/22 @ 07:29 by Heladio Maradiaga MD, FACOG) Acid reflux with ADHD Anti-D antibodies present during Asthma Stable Bipolar disorder, unspecified No meds during Chiari malformation Chiari Malformation type 1 Verbal from neuro ([facility]): 12/09/18: Patient evaluated in neurology office on 12/07/18. 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 "Spinal anesthesia is contraindicated.. epidural is okay" from a neurologic standpoint if needed. Patient subsequently had c/s 05/2021 (had not seen neuro since 2019 and did not have enough time to obtain neurology input on neuraxial anesthesia given proximity of PAT visit and date of c/s- done under GA). Depression Gestational hypertension with last in 2020. no current issues with current . History of COVID-19 05/2021 > when admitted for delivery of child. asymptomatic. History of IBS History of delivery, currently 12/2018 (first ) Migraine anxiety reports more anxiety than the depression Recent urinary tract infection current abx treatment by Deburring Technician for UTI -- to finish abx 11/06/22. Schizoaffective disorder, bipolar type Seizure disorder ?seizures (simple/partial), no conclusive findings on EEG, most recent episode 1+ years ago -- possibly related to Sulfa drug allergy. Spontaneous 2016 Transient ischemic attack (TIA) d/t allergy with sulfa drugs -- patient thinks it was around Surgical History History of appendectomy History of section (05/12/21): Grade 1 view, Glidescope#3 (elective d/t Covid 19). History of colonoscopy History of elbow surgery Right History of esophagogastroduodenoscopy (EGD) History of hip surgery Fracture repair as child History of ovarian cystectomy History of wisdom tooth extraction Family History Unknown Diabetes Heart disease Cancer Hypertension Grandmother Ovarian cyst Breast cancer Hypertension Grandfather Diabetes Bleeding disorder Hypertension Mother Ovarian cyst Deep vein thrombosis Anemia Hypertension Aunt Diabetes Cardiac disorder Father Hypercholesteremia Kidney stone Hypertension Grandfather Liver disease Hypertension Aunt Thyroid disease Grandmother Ovarian cancer Ovarian cyst Hypertension Family/Other Cleft lip Uncle Diabetes Grandfather Hypertension Other No family history of adverse response to anesthesia No pertinent family history Social History Smoking Status: Never smoker Tobacco Type: Cigarettes Second Hand Exposure: No; Hx Alcohol Use: No Hx Substance Use: No Preferred Language: Malay Communication Ability: Effective Insolvency Consultant Required: No Beliefs That Will Affect Care: None marital status: Single marital status details: Ramy Escobar (40) [phone] Current Living Situation: Family and Significant Other Current Living Situation Comment: lives with fob and kids. current occupational status: unemployed Feels Safe at Home: Yes Assistive Devices: Glasses Review of Systems as per Subjective / HPI Physical Exam Constitutional: WD/WN, vitals as above well developed and well nourished Respiratory: normal respiratory effort, lungs clear to auscultation normal respiratory effort Cardiovascular: RRR, no murmur, no edema Gastrointestinal (Abdomen): normal bowel sounds, soft, nontender, no hepatosplenomegaly Results & Data Vital Signs (Past 12 Hours) Vital Signs Pulse BP 12/03/22 07:20 101 H 147/99 H 12/03/22 07:10 98 H 139/95 12/03/22 07:00 99 H 133/89 12/03/22 06:49 105 H 141/98 H Coding Level of Care Code None Diagnoses PROM (premature rupture of membranes) O42.90
[2022-12-03] MEDS ORDERED: LACTATED RINGER'S 1,000 ML IV SCH ×2 (07:45→12:00)
--- NOTE | 2022-12-03 07:49 | Labor Progress Brief Note ---
Date of Service December 03, 2022 Note after thorough review of the chart not only will she need a general anesthetic but additionally her due date is actually January 03 not December 27 as listed the chart as she had irregular periods late presentation and there is a well-documented 6-week 3-day ultrasound which suggest January 03 this makes her 35 weeks and 2 days she is ruptured membranes and not bryson I reviewed with our pediatric hospitalist whether we can keep this patient including reviewing the aspects of Rh that we are following and the rupture membranes at 35 and 2 he feels it is reasonable to keep the patient here for delivery and assess at that time as a Assessment & Plan Admission and Anticipated Discharge Date Admission Date: December 03, 2022 Results & Data Vital Signs (Past 12 Hours) Vital Signs Pulse BP 12/03/22 07:20 101 H 147/99 H 12/03/22 07:10 98 H 139/95 12/03/22 07:00 99 H 133/89 12/03/22 06:49 105 H 141/98 H Coding Level of Care Code None Diagnoses
[2022-12-03 08:05] LABS: Hematocrit (blood only) 33.2 % (37.0-47.0); Hemoglobin 11.1 g/dl (12.0-16.0); Mean Corpuscular Hemoglobin 29.5 pg (25.0-34.0); Mean Corpuscular Hgb Conc 33.4 g/dL (32.0-36.0); Mean Corpuscular Volume 88.3 fL (80.0-100.0); Mean Platelet Volume 9.9 fL (9.4-12.4); Platelet Count 259 K/uL (130-400); RDW Coefficient of Variation 17.1 % (11.5-14.5); RDW Standard Deviation 55.2 fL (36.4-46.3); Red Blood Count 3.76 M/uL (4.20-5.40); White Blood Count 7.98 K/ul (4.8-10.8)
[2022-12-03 09:17] LABS: Albumin Level 3.3 gm/dl (3.4-5.0); Bilirubin,Total 0.4 mg/dl (0.2-1.0); Total Protein 6.4 gm/dl (6.0-8.3)
--- NOTE | 2022-12-03 09:58 | Communication Note ---
Date of Service: December 03, 2022 Patient has PROM at 35 weeks. She had a previous C section several years ago under GA without issues. In 2013, she had a seizure and incidentally during that workup a type I chiari malformation was discovered; 8mm tonsilar herniation with no mention of a syringomyelia on MRI. She has no neurologic symptoms. She does not regularly follow with Neurology and has never had a NSGY consultation. During her previous c section, notes from neurology had called neuroaxial anesthesia contraindicated and informed choice for general anesthesia. After reviewing the records, this appears to be a relatively mild and uncomplicated ACM type I. I suspect that the patient would be okay with a single shot spinal anesthetic. However, the most recent notes from neurology clearly state their opinion that neuroaxial anesthetic is contraindicated, and given that the patient has done well with GA in the past and has no other contraindications to GA, we will proceed with this modality. If the patient ever does become again, I have recommended to both the patient and emt p that she be evaluated by neurosurgery very early in her , as I suspect that a spinal anesthetic would be considered safe.
--- NOTE | 2022-12-03 10:13 | Anesthesiology Consultation ---
Date of Service December 03, 2022 Assessment & Plan Chart Review Chart Review: Acceptable Risk for Surgery and Patient NOT seen in Pre Admission Testing Consults Requested none Proposed Anesthesia Risk / Benefits Reviewed With: PT / POA / Parent / Guardian, Accepts Plan and Informed Consent Obtained History Surgery Operation Date: 12/03/22 10:10 Proposed Procedures p Section in LD(Bilateral) - Angelina Sibley MD, FACOG Height/Weight Height: 5 ft 6 in Weight: 72.364 kg Allergies Allergy/AdvReac Type Severity Reaction Status Date / Time lamotrigine Allergy Intermediate Rash, skin Verified 11/26/22 04:17 peeling sulfamethoxazole Allergy Intermediate Generalized Verified 11/26/22 04:17 Rash trimethoprim Allergy Intermediate Generalized Verified 11/26/22 04:17 Rash quetiapine Allergy Mild Skin Verified 11/26/22 04:17 peeling Sulfa (Sulfonamide AdvReac Severe Stroke/seizure-like Verified 11/26/22 04:17 Antibiotics) activity, rash Medications Home Medications Medication Instructions Recorded Confirmed Last Taken vit no.95-ferrous 1 tab PO QAM 07/28/22 11/26/22 11/25/22 fumarate 28 mg-folic acid 800 mcg tablet () Past Medical History Medical History (Updated 12/03/22 @ 07:29 by Heladio Maradiaga MD, FACOG) Acid reflux with ADHD Anti-D antibodies present during Asthma Stable Bipolar disorder, unspecified No meds during Chiari malformation Chiari Malformation type 1 Verbal from neuro ([facility]): 12/09/18: Patient evaluated in neurology office on 12/07/18. 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 "Spinal anesthesia is contraindicated.. epidural is okay" from a neurologic standpoint if needed. Patient subsequently had c/s 05/2021 (had not seen neuro since 2019 and did not have enough time to obtain neurology input on august raxial anesthesia given proximity of PAT visit and date of c/s- done under GA). Depression Gestational hypertension with last in 2020. no current issues with current . History of COVID-19 05/2021 > when admitted for delivery of child. asymptomatic. History of IBS History of delivery, currently 12/2018 (first ) Migraine anxiety reports more anxiety than the depression Recent urinary tract infection current abx treatment by Threading Machine Tender for UTI -- to finish abx 11/06/22. Schizoaffective disorder, bipolar type Seizure disorder ?seizures (simple/partial), no conclusive findings on EEG, most recent episode 1+ years ago -- possibly related to Sulfa drug allergy. Spontaneous 2015 Transient ischemic attack (TIA) d/t allergy with sulfa drugs -- patient thinks it was around Exercise / Class Metabolic Activity II 4-5 Yardwork/Stairs/Walk up hill Past Family History Family History Unknown Diabetes Heart disease Cancer Hypertension Grandmother Ovarian cyst Breast cancer Hypertension Grandfather Diabetes Bleeding disorder Hypertension Mother Ovarian cyst Deep vein thrombosis Anemia Hypertension Aunt Diabetes Cardiac disorder Father Hypercholesteremia Kidney stone Hypertension Grandfather Liver disease Hypertension Aunt Thyroid disease Grandmother Ovarian cancer Ovarian cyst Hypertension Family/Other Cleft lip Uncle Diabetes Grandfather Hypertension Other No family history of adverse response to anesthesia No pertinent family history Past Surgical History Surgical History History of appendectomy History of section (05/12/21): Grade 1 view, Glidescope#3 (elective d/t Covid 19). History of colonoscopy History of elbow surgery Right History of esophagogastroduodenoscopy (EGD) History of hip surgery Fracture repair as child History of ovarian cystectomy History of wisdom tooth extraction Past Anesthesia History No Hx of Anesthesia Complications and No Family Hx of Anesthesia Complications History of PONV No Hx of PONV and No Hx of Motion Sickness Social History Smoking Status: Former smoker tobacco type: cigarettes Smoking End Date: 03/29 Hx Alcohol Use: No Hx Substance Use: No substance use type: does not use Physical Exam Vital Signs Last Vital Signs Temp 36.6 C 12/03/22 08:02 Pulse 92 H 12/03/22 08:30 Resp 18 12/03/22 08:02 BP 141/97 H 12/03/22 08:30 O2 Del Method Room Air 12/03/22 08:02 ENMT Mouth: + poor dentition (very poor dentition) Thyromental Distance: > or= 3.5 Finger Breadths Mallampati Class: II Neck normal visual inspection Respiratory normal respiratory effort Auscultation: lungs clear to auscultation bilaterally Cardiovascular Rate/Rhythm: regular rate and regular rhythm Psychiatric Orientation: alert Testing Laboratory Results 12/03/22 07:43 Blood Type O Negative 12/03/22 07:43 Antibody Screen POSITIVE A 12/03/22 07:43
[2022-12-03] MEDS ORDERED: fentaNYL citrate PF 100 MCG/2 ML VIAL ONE ×2 (10:18→11:36)
[2022-12-03] MEDS ORDERED: MoRPHine SULFATE 2 MG/ML CARP ONE ×2 (10:51→11:24)
[2022-12-03 11:00] LABS: Total Protein Urine Random 20.9 mg/dl (0-11.9)
[2022-12-03 11:05] LABS: Creatinine Urine Random 88.6 mg/dl; Protein Creatinine Ratio Urine 0.2 (0-0.2)
[2022-12-03] MEDS ORDERED: KETOROLAC 30 MG/ML VIAL ONE (11:14)
[2022-12-03] MEDS ORDERED: ONDANSETRON INJ 2 MG/ML 2 ML VIAL ONE (11:14)
[2022-12-03] MEDS ORDERED: SUCCINYLCHOLINE CHLORIDE 20 MG/ML 10 ML VIAL IV ONE (11:14)
[2022-12-03] MEDS ORDERED: OXYTOCIN 10 UNITS/ML 10ML VIAL ONE (11:14)
[2022-12-03] MEDS ORDERED: LIDOCAINE 2% MPF LOCAL 5 ML VIAL ONE (11:14)
[2022-12-03] MEDS ORDERED: PROPOFOL IV EMULSION 10 MG/ML 20 ML VIAL IV ONE (11:14)
[2022-12-03] MEDS ORDERED: BUPIVACAINE 0.25% PF 30 ML VIAL ONE (11:20)
[2022-12-03] MEDS ORDERED: BUPIVACAINE 0.25% 2.5MG/ML PF 10 ML VIAL INFIL ONE (11:24)
[2022-12-03] MEDS ORDERED: ePHEDrine sulfate 50 MG/ML AMP IV PRN (11:56)
[2022-12-03] MEDS ORDERED: ATROPINE SULFATE 0.1 MG/ML 10ML SYR IV PRN (11:56)
[2022-12-03] MEDS ORDERED: fentaNYL citrate PF 100 MCG/2 ML VIAL IV PRN (11:56)
[2022-12-03] MEDS ORDERED: ONDANSETRON INJ 2 MG/ML 2 ML VIAL IV PRN ×2 (11:56→11:59)
--- NOTE | 2022-12-03 11:57 | Anesthesiology Progress Note ---
Date of Service December 03, 2022 Anesthesia Post Procedure Vital Signs Vital Signs: Temp Pulse Resp BP Pulse Ox O2 Del Method 12/03/22 08:02 36.6 C 97 H 18 140/93 Room Air 12/03/22 11:56 96 12/03/22 11:56 101 H 12/03/22 11:53 104 H 12/03/22 11:53 153/88 H 12/03/22 08:30 92 H 12/03/22 08:30 141/97 H 12/03/22 08:20 100 H 12/03/22 08:20 139/99 12/03/22 08:10 88 12/03/22 08:10 141/93 H 12/03/22 08:00 97 H 140/93 12/03/22 07:50 87 139/98 12/03/22 07:48 102 H 136/91 12/03/22 07:20 101 H 147/99 H 12/03/22 07:10 98 H 139/95 12/03/22 07:00 99 H 133/89 12/03/22 06:49 105 H 141/98 H Transfer of Care Handoff Completed per policy Notes Mental Status: alert / awake / arousable Patient Amnestic to Procedure: Yes Nausea / Vomiting: adequately controlled Pain: adequately controlled Airway Patency, RR, SpO2: stable & adequate BP & HR: stable & adequate Hydration State: stable & adequate Anesthetic Complications: no major complications apparent
--- NOTE | 2022-12-03 11:58 | Post Operative Brief Note ---
PG Immediate Post Op with CF Date of Surgery December 03, 2022 Pre & Post Diagnosis Operation Date: 12/03/22 10:10 Pre-Op Diagnosis: 1. Spontaneous Rupture of Membranes at 35.2 Weeks 2. Prior Section for Arnold Chiari Malformation 3. Breech Post-Op Diagnosis: Same I identified the patient and participated in the time-out.: Yes Procedure Operation Date: 12/03/22 10:10 Actual Procedures p Section in LD; Repeat Lower Uterine Transverse Section for the of a live boy at 1054.(Bilateral) - Angelina Sibley MD, FACOG Surgeon Angelina Sibley MD, FACOG Dermatological Surgeon Dr. Janny Tsai Estimated Blood Loss 400 Findings Consistent with Post-Op Diagnosis Specimens Specimen Description: 1. Placenta: Hold 2. Cord Blood Obtained 3. Arterial and Venous Cord Blood Gases Drains Vasquez Catheter Anesthesia Type General Complications none Disposition Accompanied Patient To Recovery: Yes
[2022-12-03] MEDS ORDERED: NALOXONE HCL 0.4 MG/1 ML VIAL/CARP IV PRN (11:59)
[2022-12-03] MEDS ORDERED: SENNA 8.6 MG TAB PO PRN (11:59)
[2022-12-03] MEDS ORDERED: HYDROmorphone PCA 30 MG/30 ML IV PRN (11:59)
[2022-12-03] MEDS ORDERED: PROMETHAZINE HCL 25 MG in SODIUM CHLORIDE 0.9% 50 ML IV PRN (11:59)
[2022-12-03] MEDS ORDERED: BENZOCAINE 20% AER SPR 82.5 GM CAN EXT PRN (11:59)
[2022-12-03] MEDS ORDERED: diphenhydrAMINE 50 MG/ML VIAL IV PRN (11:59)
[2022-12-03] MEDS ORDERED: KETOROLAC 30 MG/ML VIAL IV PRN (11:59)
[2022-12-03] MEDS ORDERED: DIPHTHERIA/TETANUS/PERTUSSIS 0.5mL SYR/VIAL (Age 7+yrs) IM ONE (11:59)
[2022-12-03] MEDS ORDERED: HYDROCORTISONE ACETATE 25 MG SUPP PR PRN (11:59)
[2022-12-03] MEDS ORDERED: MEPERIDINE HCL 50 MG/ML CARP IV PRN (11:59)
[2022-12-03] MEDS ORDERED: MAGNESIUM HYDROXIDE SUSP 30 ML UDC PO PRN (11:59)
[2022-12-03] MEDS ORDERED: diphenhydrAMINE Capsule 25 MG CAP PO PRN (11:59)
[2022-12-03] MEDS ORDERED: HYDROmorphone PCA 30 MG/30 ML IV ONE (12:11)
[2022-12-03] MEDS ORDERED: COUGH DROP (SUGAR FREE) LOZ 24 LOZ/1 BOX BUCCAL ONE (13:31)
--- NOTE | 2022-12-03 14:12 | Operative Report ---
PG Post Operative Report Pre & Post Diagnosis Operation Date: 12/03/22 10:10 Pre-Op Diagnosis: 1. Spontaneous Rupture of Membranes at 35.2 Weeks 2. Prior Section for Arnold Chiari Malformation 3. Breech 4. unwanted fertility and multiparity Post-Op Diagnosis: Same I identified the patient and participated in the time-out.: Yes Procedure Operation Date: 12/03/22 10:10 Actual Procedures p Section in LD; Repeat Lower Uterine Transverse Section for the of a live boy at 1054.(Bilateral) - Angelina Sibley MD, FACOG Bilateral Salpingectomies Surgeon Angelina Sibley MD, FACOG Medical Office Supervisor Janny Tsai D.O. Estimated Blood Loss 400 Findings Consistent with Post-Op Diagnosis Uterus was gravid and consistent with a term in size. Bilateral ovaries and fallopian tubes were grossly normal. Infant was in the double footling breech presentation. Specimens bilateral fallopian tubes placenta to hold Drains kirk catheter to straight drainage clear urine at the end of the case. Anesthesia Type General Complications none Disposition Accompanied Patient To Recovery: Yes Disposition: L&D Indications Patient is a 27-year-old 4 para 111 2 female EDC of 12/28/2022 who presents at 35-2/7 weeks with spontaneous rupture membranes for clear fluid. There have been no contractions spontaneously. Patient has been scheduled for repeat low-transverse section because of Arnold-Chiari malformation. She is also requesting bilateral salpingectomies for unwanted fertility and multiparity. She understands the risk procedures including the risk for future pregnancies and she is willing to proceed. Description of Procedure After the patient was prepped and draped sterile fashion, general anesthesia was induced successfully. A Kirk catheter was placed using sterile technique prior to arrival in the operating room. A low transverse skin incision was made with a scalpel and carried to the fascia with the same scalpel. The fascia incision was then extended with Wolff scissors and the edges grasped with Ilene clamps. The underlying rectus muscles were then bluntly sharply taken off of the overlying fascia. The rectus muscles were already superiorly and the peritoneal cavity was entered easily. The inferior portion of the rectus muscles were then divided with Metzenbaum scissors. The bladder was then taken down off the anterior surface of the uterus and placed behind the bladder blade. A low transverse incision was made in the uterus and extended transversely in a blunt fashion. Membranes were ruptured for clear fluid. The was delivered from the double footling breech presentation with moderate fundal pressure. There was a nuchal cord noted on delivery and this was reduced. The cord was clamped and cut and the handed off to Dr. Maier who was in attendance as backend tester along with the nursery team. Placenta was then expressed intact with a three-vessel cord. Uterus was then exteriorized and covered with a clean lap sponge. The uterine cavity was then swept for any retained tissue or membranes. The uterine incision was then closed in 2 layers in a running locking imbricating fashion with 0 Monocryl. A bleeding site along the left corner of the incision was secured with a [id number] stitch of the same. Hemostasis at this point appeared to be excellent. Attention was then turned to the salpingectomy. The left fallopian tube was identified and followed to its fimbriated end it was grasped with a Leydi clamp the LigaSure device was then used to divide the fallopian tube from the mesosalpinx to the level of its insertion on the fundus of the uterus. The right fallopian tube was then identified and followed to its fimbriated end it tube was grasped with a Raymond clamp and the LigaSure device was then used to remove the right fallopian tube to its insertion on the cornua of the uterus. Hemostasis to be excellent at the salpingectomy site the posterior cul-de-sac was suctioned for small amount of fluid and blood. After examining the salpingectomy sites and the uterine incision which were all found to have excellent hemostasis, the uterus was placed back inside the abdominal Cavity. The salpingectomy sites and incision were again examined and continued to have excellent hemostasis. The rectus muscle were brought together on the midline with a individual stitches of 0 Monocryl. The fascia was then closed in a running fashion with 0 Vicryl. After securing hemostasis in the subcutaneous layer, the skin edges were reapproximated using a subcuticular stitch of 4-0 Vicryl. Urine was clear at the end of the case. The general anesthesia was then reversed and the patient moved to labor and delivery for recovery in stable condition. I attest to the content of the Intraoperative Record and any orders documented therein. Any exceptions are noted below. OB Procedure Charges [id number] Add on Tubal for C/S (bilateral salpingectomy)
[2022-12-03] MEDS: OXYTOCIN 20 UNITS in LACTATED RINGER'S 1,000 ML IV SCH ×2 (14:43→23:55)
[2022-12-03] MEDS: SIMETHICONE 80 MG CHEW PO SCH ×3 (18:37→22:47)
[2022-12-03] MEDS: DOCUSATE SODIUM 100 MG CAP PO SCH (22:46)
--- NOTE | 2022-12-04 05:56 | Obstetrical Progress Note ---
Date of Service <Janny Tj Tsai DO - Last Filed: 12/04/22 06:53> December 04, 2022 Assessment & Plan <Janny SMark Tsai DO - Last Filed: 12/04/22 06:53> (1) Status post section: Feels well today. Eating well, voiding well, ambulating well. - Pain well controlled currently with MANAGER OF OPERATIONS pump; plan to transition to oral pain regimen - Routine care -- OOB, ambulation, diet progression as tolerated - After discharge will have 6 week follow-up <Angelina Sibley MD, FACOG - Last Filed: 12/04/22 07:35> (1) Status post section: Subjective <Janny Tsai DO - Last Filed: 12/04/22 06:53> Gillian is a 27 y/o female who is POD #1 following delivery at 35 2/7 weeks. was performed under general anesthesia because Gillian has a history of Arnold Chiari malformation. She reports feeling well overall this morning. Mild abdominal cramping, pain well managed on analgesics. Voiding. Tolerating meals overnight and able to ambulate some. Not passing gas yet, no bowel movement. Has some persistent lochia with some improvement this morning. Currently bottle feeding. Review of Systems Denies fever, chills, sweats Denies shortness of breath, difficulty breathing, chest pain, palpitations, chest pressure. Denies breast pain. Denies dysuria. Denies headache or changes in vision. Physical Exam <Janny Tsai DO - Last Filed: 12/04/22 06:53> General: Alert, oriented. No acute distress. Cardiac: Regular rate and rhythm, no murmurs/rubs/gallops. Respiratory: Clear to auscultation bilaterally a/p, no wheezes/rales/rhonchi. No increased work of breathing. Symmetrical chest rise. No respiratory distress. Abdomen: Soft, nontender, nondistended. Uterus: Uterine fundus firm, palpable 2 cm below umbilicus. Surgical scar dressing clean and dry. Lower Extremities: No lower extremity edema or swelling. No deep calf pain. Results & Data <Janny Tsai DO - Last Filed: 12/04/22 06:53> Vital Signs (Past 12 Hours) Vital Signs Temp Pulse Resp BP Pulse Ox O2 Del Method 12/04/22 02:34 36.7 C 70 16 133/85 98 Room Air 12/03/22 20:20 36.3 C L 78 16 134/94 98 Room Air 12/03/22 20:20 Room Air <Angelina Sibley MD, FACOG - Last Filed: 12/04/22 07:35> Co-Signing Physician Notes Resident Physician Supervision Note: I interviewed and examined the patient. Discussed with Dr. Tsai and agree with findings and plan as documented in the note. Any exceptions or clarifications are listed here: dressing removed and incision inspected and is clean dry and intact. Documented By: Angelina Sibley MD, FACOG Resident Activity Tracking <Janny Tsai DO - Last Filed: 12/04/22 06:53> Resident Involvement: Resident Care Provided Care Provided: OB Delivery (post )
[2022-12-04] MEDS ORDERED: CITRIC ACID/SODIUM CITRATE 15 ML UDC PO SCH (06:00)
[2022-12-04 06:48] LABS: Basophils # (auto) 0.02 K/uL (0-0.2); Basophils % (auto) 0.2 %; Eosinophils # (auto) 0.08 K/uL (0-0.50); Eosinophils % (auto) 0.8 %; Hematocrit (blood only) 31.4 % (37.0-47.0); Hemoglobin 10.6 g/dl (12.0-16.0); Immature Granulocytes # (auto) 0.04 K/uL (0.01-0.20); Immature Granulocytes % (auto) 0.4 %; Lymphocytes # (auto) 1.55 K/uL (1.2-3.4); Mean Corpuscular Hemoglobin 29.3 pg (25.0-34.0); Mean Corpuscular Hgb Conc 33.8 g/dL (32.0-36.0); Mean Corpuscular Volume 86.7 fL (80.0-100.0); Mean Platelet Volume 10.2 fL (9.4-12.4); Monocytes # (auto) 0.83 K/uL (0.11-0.59); Neutrophils # (auto) 7.82 K/uL (1.40-6.50); Neutrophils % (auto) 75.6 %; Platelet Count 271 K/uL (130-400); RDW Coefficient of Variation 16.6 % (11.5-14.5); RDW Standard Deviation 52.9 fL (36.4-46.3); Red Blood Count 3.62 M/uL (4.20-5.40); White Blood Count 10.34 K/ul (4.8-10.8)
[2022-12-04] MEDS ORDERED: DC PCA 1 EA DEVI ONE (08:02)
[2022-12-04] MEDS: PRENATAL VITAMIN 1 TAB PO SCH (11:07)
[2022-12-04] MEDS: FERROUS SULFATE 325 MG TAB PO SCH (11:07)
[2022-12-04] MEDS: SIMETHICONE 80 MG CHEW PO SCH ×4 (11:07→20:31)
[2022-12-04] MEDS: DOCUSATE SODIUM 100 MG CAP PO SCH ×2 (11:08→20:31)
[2022-12-04] MEDS: oxyCODONE/ACETAMINOPHEN 5mg/325mg TAB PO PRN ×2 (13:40→20:30)
[2022-12-04] MEDS: IBUPROFEN 600 MG TAB PO PRN ×2 (13:40→20:31)
[2022-12-04] MEDS ORDERED: bisacodyL 5 MG TABEC PO SCH (20:00)
--- NOTE | 2022-12-05 05:43 | Obstetrical Progress Note ---
Date of Service <Janny Tsai - Last Filed: 12/05/22 06:29> December 05, 2022 Assessment & Plan <Janny TsaiDO - Last Filed: 12/05/22 06:29> (1) Status post section: Feels well today. Eating well, voiding well, ambulating well. - Routine care -- OOB, ambulation, diet progression as tolerated - After discharge will have 6 week follow-up <Blanca García MD, FACOG - Last Filed: 12/05/22 07:17> (1) Status post section: Subjective <Janny TsaiDO - Last Filed: 12/05/22 06:29> Gillian is a 27 y/o female who is POD #2 following delivery at 35 2/7 weeks. was performed under general anesthesia because Gillian has a history of Arnold Chiari malformation. She reports feeling well overall this morning. Mild abdominal cramping, pain well managed on analgesics. Voiding. Tolerating meals overnight and able to ambulate some. Is passing gas, no bowel movement. Has some persistent lochia with some improvement this morning. Currently bottle feeding. Review of Systems Denies fever, chills, sweats Denies shortness of breath, difficulty breathing, chest pain, palpitations, chest pressure. Denies breast pain. Denies dysuria. Denies headache or changes in vision. Physical Exam <Janny TsaiDO - Last Filed: 12/05/22 06:29> General: Alert, oriented. No acute distress. Cardiac: Regular rate and rhythm, no murmurs/rubs/gallops. Respiratory: Clear to auscultation bilaterally a/p, no wheezes/rales/rhonchi. No increased work of breathing. Symmetrical chest rise. No respiratory distress. Abdomen: Soft, nontender, nondistended. Uterus: Uterine fundus firm, palpable 2 cm below umbilicus. Surgical scar dwell healing without discharge. Lower Extremities: No lower extremity edema or swelling. No deep calf pain. Results & Data <Jannyanika TsaiDO - Last Filed: 12/05/22 06:29> Vital Signs (Past 12 Hours) Vital Signs Temp Pulse Resp BP O2 Del Method 12/05/22 03:30 36.8 C 81 18 136/89 Room Air 12/04/22 19:00 36.5 C 85 18 129/88 Room Air <Blanca García MD, FACOG - Last Filed: 12/05/22 07:17> Co-Signing Physician Notes Resident Physician Supervision Note: I interviewed and examined the patient. Discussed with Dr. Tsai and agree with findings and plan as documented in the note. Any exceptions or clarifications are listed here: Doing well from a PP/PO standpoint. Still cys/social worker aide issues that need to be resolved. Routine care. Documented By: Blanca García MD, FACOG Resident Activity Tracking <Janny Tsai, DO - Last Filed: 12/05/22 06:29> Resident Involvement: Resident Care Provided Care Provided: OB Delivery (post )
[2022-12-05] MEDS: oxyCODONE/ACETAMINOPHEN 5mg/325mg TAB PO PRN ×4 (05:48→22:05)
[2022-12-05] MEDS: IBUPROFEN 600 MG TAB PO PRN ×4 (05:49→22:05)
[2022-12-05 06:14] LABS: Hematocrit (blood only) 33.9 % (37.0-47.0); Hemoglobin 11.3 g/dl (12.0-16.0)
[2022-12-05] MEDS: PRENATAL VITAMIN 1 TAB PO SCH (09:31)
[2022-12-05] MEDS: FERROUS SULFATE 325 MG TAB PO SCH (09:31)
[2022-12-05] MEDS: DOCUSATE SODIUM 100 MG CAP PO SCH ×2 (09:31→22:05)
[2022-12-05] MEDS: SIMETHICONE 80 MG CHEW PO SCH ×4 (09:31→22:05)
[2022-12-05] MEDS ORDERED: bisacodyL 10 MG SUPP PR PRN (11:59)
[2022-12-06] MEDS: IBUPROFEN 600 MG TAB PO PRN ×3 (02:11→11:59)
[2022-12-06] MEDS: oxyCODONE/ACETAMINOPHEN 5mg/325mg TAB PO PRN ×3 (02:11→12:00)
--- NOTE | 2022-12-06 05:16 | Obstetrical Progress Note ---
Date of Service <Janny Spencer DO Eulalio - Last Filed: 12/06/22 06:18> December 06, 2022 Assessment & Plan <Janny PaulinoMark Tsai DO - Last Filed: 12/06/22 06:18> (1) Status post section: Feels well today. Eating well, voiding well, ambulating well. - Routine care -- OOB, ambulation, diet progression as tolerated - After discharge will have 6 week follow-up <Carlee Orozco MD - Last Filed: 12/06/22 06:58> (1) Status post section: Subjective <Janny Spencer DO Eulalio - Last Filed: 12/06/22 06:18> Gillian is a 27 y/o female who is POD #3 following delivery at 35 2/7 weeks. was performed under general anesthesia because Gillian has a history of Arnold Chiari malformation. She reports feeling well overall this morning. Mild abdominal cramping, pain well managed on analgesics. Voiding. Tolerating meals overnight and able to ambulate some. Is passing gas, no bowel movement. Has some persistent lochia with some improvement this morning. Currently bottle feeding. Review of Systems Denies fever, chills, sweats Denies shortness of breath, difficulty breathing, chest pain, palpitations, chest pressure. Denies breast pain. Denies dysuria. Denies headache or changes in vision. Physical Exam <Janny SMark Tsai DO - Last Filed: 12/06/22 06:18> General: Alert, oriented. No acute distress. Cardiac: Regular rate and rhythm, no murmurs/rubs/gallops. Respiratory: Clear to auscultation bilaterally a/p, no wheezes/rales/rhonchi. No increased work of breathing. Symmetrical chest rise. No respiratory distress. Abdomen: Soft, nontender, nondistended. Uterus: Uterine fundus firm, palpable 3 cm below umbilicus. Surgical scar well healing without discharge. Lower Extremities: No lower extremity edema or swelling. No deep calf pain. Results & Data <Janny Tsai DO - Last Filed: 12/06/22 06:18> Vital Signs (Past 12 Hours) Vital Signs Temp Pulse Resp BP Pulse Ox O2 Del Method 12/05/22 23:32 36.6 C 76 18 153/99 H 99 Room Air 12/05/22 19:20 36.6 C 106 H 19 139/84 98 Room Air 12/05/22 19:19 36.8 C 86 18 139/84 99 Room Air <Carlee Orozco MD - Last Filed: 12/06/22 06:58> Co-Signing Physician Notes Resident Physician Supervision Note: I interviewed and examined the patient. Discussed with Dr. Tsai and agree with findings and plan as documented in the note. Any exceptions or clarifications are listed here: Patient likely ready for D/C home today but pending CYS and peds assessment / unclear if will be released to home. She is POD#3 and has a potential additional day of hospital stay if needed. Will also observe for high BP this morning as there have been isolated hypertensive values without sustained hypertension or symptoms of preeclampsia. If disposition plan is finalized by this afternoon and patient's vitals are OK, she is prepared for D/C today. Documented By: Carlee Orozco MD, FACOG Resident Activity Tracking <Janny Tsai, - Last Filed: 12/06/22 06:18> Resident Involvement: Resident Care Provided Care Provided: OB Delivery (post )
[2022-12-06] MEDS: SODIUM CHLORIDE 0.9% 1000ML 1,000 ML IV SCH ×2 (07:24→07:25)
[2022-12-06] MEDS: DOCUSATE SODIUM 100 MG CAP PO SCH (08:30)
[2022-12-06] MEDS: FERROUS SULFATE 325 MG TAB PO SCH (08:30)
[2022-12-06] MEDS: PRENATAL VITAMIN 1 TAB PO SCH (08:30)
[2022-12-06] MEDS: SIMETHICONE 80 MG CHEW PO SCH ×2 (08:30→11:59)
--- NOTE | 2022-12-11 12:31 | Discharge Summary (DS) ---
DATE OF ADMISSION: 12/03/2022. DATE OF DISCHARGE: 12/06/2022. PRINCIPAL DIAGNOSES: Spontaneous rupture of membranes at 35 weeks' gestation. Prior sectio n for Arnold-Chiari malformation, breech presentation, unwanted fertility, and multiparity. PRINCIPAL PROCEDURE: Repeat low transverse section and bilateral salpingectomy plus deliver y of a viable male infant. HISTORY: The patient is a 27-year-old 4, para 1-1-1-2 female, EDC of 12/28/2022, who present ed at 35 and 2/7 weeks with spontaneous rupture of membranes for clear fluid. She had not been contr acting spontaneously and she had been scheduled for repeat low transverse section because of Arnold-Chiari malformation. She is also requesting bilateral salpingectomy for unwanted fertility a nd multiparity. Repeat low transverse section and bilateral salpingectomy was done under ge neral anesthetic because of the Arnold-Chiari malformation. The patient had no complications during the procedure either from the anesthetic or from her surgery and she had an uncomplicated postop course. She remained afebrile throughout her hospital stay. She was eating regular diet on her first postop day, ambulating without difficulty and voiding without d ifficulty. Pain control was affected with oral pain meds as well. Hemoglobin on admission was 11.1, hematocrit of 33.2. First postop day hemoglobin 10.6, hematocrit 31.4. Second postop day, hemoglob in 11.3, hematocrit of 33.9. She was sent home in good condition with prescriptions for Motrin 600 m g p.o. 6 hours p.r.n. pain, Percocet 1 tablet p.o. every 4-6 hours p.r.n. pain. She is to call for t emperature of 101 degrees or higher, heavy vaginal bleeding, burning with urination, increased rednes s, drainage or pain from her incision, calf tenderness or any other concerns. She will be seen in [facility] office in 6 weeks for a followup visit, sooner if there are any other issues prior to that. Job ID: [id number]
== END 2022-12-06 13:41 | disposition home or self-care (01) | DRG 784 ==
LOC: OPB 06:38 → 4S1 06:39 → 4E2 15:50